=== PATIENT | female | born 1955 | race Caucasian/White ===

== ENCOUNTER 2017-07-14 18:10 | Emergency (ER) | payer OTHER ==
[~2017-07-14] VITALS: Ht 157.5 cm; Wt 63.5 kg
[2017-07-14] MEDS ORDERED: BENADRYL25 MG PO (20:24)
[2017-07-14] MEDS ORDERED: Pepcid40 MG PO (20:24)
[2017-07-14] MEDS ORDERED: Prednisone20 MG PO (20:24)
== END 2017-07-14 20:46 | disposition home or self-care (01) ==
LOC: ER 18:10
DX: L50.9 Urticaria, unspecified (principal); Z91.013 Allergy to seafood; Z88.8 Allergy status to other drugs, medicaments and biological substances; F17.200 Nicotine dependence, unspecified, uncomplicated
CPT/HCPCS: 96372; 99283; J2930; Q0163

== ENCOUNTER 2020-03-23 08:23 | Day surgery (SDC) | payer OTHER ==
[~2020-03-23] VITALS: Ht 157.5 cm; Wt 81.3 kg
[~2020-03-23 08:23] MED LIST: BENADRYL25 MG PO; Pepcid40 MG PO; Prednisone20 MG PO
--- NOTE | 2020-03-23 09:15 | NUR ---
03/23/20 0915 EWA VALENCIA PATIENT INTO PRE OP - REPORTS EATING COOKIE AND WATER AT 0800 THIS MORNING. OR NURSE NOTIFIED WHO CAME AND SPOKE WITH PATIENT. PATIENT NOTIFIED THAT ALTHOUGH PROCEDURE IS SCHEDULED LOCAL - RELAXING MEDICATION AND PAIN MEDICATION IS SOMETIMES GIVEN THROUGH THE IV WELL LOCAL. PATIENT NOTIFIED DUE TO EATING SHE WILL NOT BE ELLIGIBLE FOR THIS. SHE IS AWARE AND WILLING TO PROCEED. PT READY FOR OR. IV PRESENT, ENGAGED IN PRE OP TEACHING.
--- NOTE | 2020-03-23 09:58 | NUR ---
03/23/20 0958 Fannie Wren PT NOT NPO THIS MORNING, NOTIFIED.NO SEDATION PER MD, LOCAL ONLY.PT WAS AWARE AND OKAY WITH THIS PLAN TO PROCEED.PT BROUGHT BACK TO THE OR,POSTIONED,PREPPED,AND DRAPED, LOCAL ANESTHETIC GIVEN.PT APPEARS TO BE TOLERATING THE PROCEDURE WELL WITHOUT COMPLAINT.PT ENCOURAGED TO VOCALIZE ANY DISCOMFORT. WILL CONTINUE TO MONITOR.
--- NOTE | 2020-03-23 10:54 | NUR ---
03/23/20 1054 Samantha Newby V DRESSING ON L SIDE OF PT'S HEAD.
== END 2020-03-23 10:45 | disposition home or self-care (01) ==
LOC: ORSCSDS 08:23
PROVIDERS: Surgery
PROC: 0JB00ZX Excision of Scalp Subcutaneous Tissue and Fascia, Open Approach, Diagnostic (ICD-10-PCS; principal; 2020-03-23 09:30)
DX: L72.8 Other follicular cysts of the skin and subcutaneous tissue (principal); B19.20 Unspecified viral hepatitis C without hepatic coma; Z87.891 Personal history of nicotine dependence
CPT/HCPCS: 88304; J0690; J7120

== ENCOUNTER 2024-10-30 20:46 | Inpatient (IN) | payer OTHER ==
[~2024-10-30] VITALS: Ht 157.5 cm; Wt 95.5 kg
[2024-10-30 21:27] LABS: Hematocrit 40.8 % (33.0-51.0); Hemoglobin 14.6 g/dL (11.5-16.0); Mean Corpuscular HGB 31.1 pg (26.0-34.0); Mean Corpuscular HGB Conc 35.8 g/dL (31.5-36.5); Mean Corpuscular Volume 87 fL (80-100); NRBC ABSOLUTE 0.03 K/mm3 (0.00-0.02); NRBC Auto 0.2 /100 WBC (0.0-0.2); RDW Coefficient Variation 18.6 % (11.7-14.2); Red Blood Cell Count 4.69 M/mm3 (3.80-5.20); White Blood Cell Count 16.92 K/mm3 (4.00-11.30)
[2024-10-30 21:36] LABS: Albumin, Blood 2.3 g/dL (3.4-5.0); Albumin/Globulin Ratio 0.8 (0.8-1.8); Bilirubin, Total 7.1 mg/dL (0.1-1.0); Calcium, Blood 8.8 mg/dL (8.5-10.1); Creatinine, Blood 0.62 mg/dL (0.40-1.00); Globulin, Blood 2.8 g/dL (2.2-4.0); Potassium, Blood 3.8 mmol/L (3.5-5.5); Total Protein, Blood 5.1 g/dL (6.4-8.2)
[2024-10-30 21:45] LABS: Platelet Count 25 K/mm3 (150-400)
[2024-10-30 22:44] LABS: BASOPHILS ABSOLUTE MAN 0.16 K/mm3 (0.00-0.23); BASOPHILS PERCENT MAN 1 % (0-2); EOSINOPHILS ABSOLUTE MAN 9.13 K/mm3 (0.00-0.68); EOSINOPHILS PERCENT MAN 54 % (0-6); LYMPHOCYTES ABSOLUTE MAN 3.04 K/mm3 (0.84-5.20); LYMPHOCYTES PERCENT MAN 18 % (21-46); MONOCYTES PERCENT MAN 16 % (4-13); NEUTROPHILS ABSOLUTE MAN 1.86 K/mm3 (1.96-9.15); SEG NEUTROPHILS PERCENT MAN 11 % (41-73); TOTAL CELLS COUNTED 100
[2024-10-30] MEDS ORDERED: NS 1,000 ML IV SCH (23:25)
[2024-10-31 02:24] LABS: Source, Urine Clean Catch
[2024-10-31 02:27] LABS: Appearance, Urine Hazy (Clear); Blood, Urine 5+ (Neg); Glucose Qualitative, Urine Neg (Neg); Ketones, Urine 1+ (Neg); Leukocyte Esterase, Urine 3+ (Neg); Nitrite, Urine Pos (Neg); Protein, Urine 3+ (Neg); Specific Gravity, Urine 1.015 (1.003-1.022); Urobilinogen, Urine 2+ (Normal)
[2024-10-31 02:43] LABS: Bilirubin, Urine 2+ (Neg); Color, Urine Orange (P-Yellow)
[2024-10-31 02:46] LABS: Bacteria Few /hpf; Red Blood Cells, Urine 50-100 /hpf (0-2); Squamous Epithelial Cells Many /hpf (Few)
[2024-10-31 02:48] VITALS: BP 113/63
[2024-10-31] MEDS ORDERED: CefTRIAXone Sodium 1,000 MG in NS 100 ML IV SCH (03:06)
--- NOTE | 2024-10-31 04:08 | NUR ---
ADMIT NOTE HANDOFF GIVEN TO STUDENT NURSE BY STRAP FOLDING MACHINE OPERATOR. PT ARRIVED TO FLOOR VIA GURNEY. PT ORIENTED TO UNIT. CALL BUTTON WITHIN REACH. PERSONAL POSSESSIONS WITH PT.
[2024-10-31] MEDS ORDERED: NS 250 ML IV PRN (04:10)
[2024-10-31 05:15] LABS: Hematocrit 39.5 % (33.0-51.0); Hemoglobin 14.1 g/dL (11.5-16.0); Mean Corpuscular HGB 31.1 pg (26.0-34.0); Mean Corpuscular HGB Conc 35.7 g/dL (31.5-36.5); Mean Corpuscular Volume 87 fL (80-100); NRBC ABSOLUTE 0.02 K/mm3 (0.00-0.02); NRBC Auto 0.1 /100 WBC (0.0-0.2); RDW Coefficient Variation 18.8 % (11.7-14.2); RDW Standard Deviation 59.4 fL (35.1-46.3); Red Blood Cell Count 4.53 M/mm3 (3.80-5.20); White Blood Cell Count 17.66 K/mm3 (4.00-11.30)
[2024-10-31 05:22] LABS: Platelet Count 24 K/mm3 (150-400)
[2024-10-31 05:34] LABS: Albumin, Blood 2.2 g/dL (3.4-5.0); Albumin/Globulin Ratio 0.8 (0.8-1.8); Bilirubin, Total 6.7 mg/dL (0.1-1.0); Bun/Creatinine Ratio 20.1 (12.0-20.0); Calcium, Blood 8.5 mg/dL (8.5-10.1); Creatinine, Blood 0.55 mg/dL (0.40-1.00); Globulin, Blood 2.8 g/dL (2.2-4.0); Potassium, Blood 3.7 mmol/L (3.5-5.5)
--- NOTE | 2024-10-31 05:39 | NUR ---
SPOKE WITH RESIDENT INFORMED HER OF CRITICAL LOW PLATELET LAB. INFORMED HER OF SITES THAT ARE LIGHTLY BLEEDING ON THE PATIENTS BODY. I DID ASK ABOUT THE LOVENOX SCHEDULED FOR LATER THIS MORNING, AND SHE INFORMED ME TO HAVE IT HELD FOR TODAY.
--- NOTE | 2024-10-31 05:41 | NUR ---
SHIFT SUMMARY ADMIT 10/31/24 FOR PNEUMONIA. FULL CODE. HX METASTATIC MELANOMA TO LEFT AXILLARY LYMPH NODE. HX OVARIAN CA S/P B/L ISAC AND BSO. DENIES CHEST PAIN. INCREASING GENERAL WEAKNESS AND DYSPNEA SINCE LAST IMMUNOTHERAPY IN 09/2024. FOLLOWS WITH DR. CONCHITA CARRILLO. DIFFICULTY RISING FROM BATH LAST HS WITH HELP FROM LIFE PARTNER, LETI WHO SHE LIVES WITH. HYPOTENSIVE IN ED, IMPROVED WITH 1L NS. PLATELETS 24. SCANT ACTIVE BLEEDING FROM URETHRA D/T CONTRERAS START ATTEMPT IN ED, ALSO BLEED FROM [facility] IV, AND L SUBCONJUNCTIVA. PT DESCRIBING BAND-LIKE TIGHT DISCOMFORT AROUND TOP OF ABDOMEN RADIATING TO BACK. B/L HANDS NUMB >1 MONTH. DAILY DOSE OF IV ROCEPHIN VIA 20g IN LAC. 2ND IV IN [facility]. AT BASELINE AMBULATES WITH FURNITURE FOR ASSIST. BEDREST HERE TILL PT/OT EVAL IN AM. PENDING DIET ORDER, CURRENTLY NPO. RESIDENT ALSO TO ADD ON IV ABX FOR UTI, CURRENTLY PENDING.
[2024-10-31 05:57] VITALS: BP 117/57
[2024-10-31 06:15] LABS: BASOPHILS PERCENT MAN 0 % (0-2); EOSINOPHILS ABSOLUTE MAN 8.65 K/mm3 (0.00-0.68); EOSINOPHILS PERCENT MAN 49 % (0-6); LYMPHOCYTES ABSOLUTE MAN 4.41 K/mm3 (0.84-5.20); LYMPHOCYTES PERCENT MAN 25 % (21-46); MONOCYTES ABSOLUTE MAN 1.94 K/mm3 (0.16-1.47); MONOCYTES PERCENT MAN 11 % (4-13); NEUTROPHILS ABSOLUTE MAN 2.64 K/mm3 (1.96-9.15); SEG NEUTROPHILS PERCENT MAN 15 % (41-73); TOTAL CELLS COUNTED 100
[2024-10-31 08:21] VITALS: BP 112/69
[2024-10-31] MEDS ORDERED: Enoxaparin 40 MG/0.4 ML SYR SC SCH (09:00)
[2024-10-31] MEDS ORDERED: Azithromycin 500 MG in NS 250 ML IV SCH (09:30)
[2024-10-31] MEDS ORDERED: Calcium Carbonate 500 MG Tab Chew PO STA (11:48)
[2024-10-31] MEDS ORDERED: Calcium Carbonate 500 MG Tab Chew PO PRN (12:00)
[2024-10-31] MEDS ORDERED: NS 1,000 ML IV SCH (15:05)
[2024-10-31] MEDS ORDERED: Piperacillin/Tazobactam Sod 3.375 GM in NS 100 ML IV SCH (15:09)
[2024-10-31] MEDS ORDERED: Lidocaine 2% Viscous Soln 20 ML,Nystatin 100,000 Unit/ml Susp 20 ML,Mag Hydrox/Al Hydro... MT PRN (15:15)
[2024-10-31 15:24] VITALS: BP 150/87
[2024-10-31] MEDS ORDERED: Acetaminophen 325 MG TABLET PO PRN (15:50)
--- NOTE | 2024-10-31 17:44 | NUR ---
SHIFT SUMMARY: PT AOX4, COOPERATIVE W/ STAFF AND CARE. NOT ON TELE, 2L NC >90%. PT/OT WORKED WITH PT IN AM, PT WAS WEAK TO TRANSFER, IN AFTERNOON PT GOT UP W/ 2 PERSON ASSIST AND TOLERATED WELL. UTILIZED BEDSIDE COMMODE AND SITTING IN RECLINER. PT IS TOLERATING FOODS IN SMALL PORTIONS AT THIS TIME W/ FEEDS GOING UP TOLERATED. PT FILLED OUT [place] FOR RECORDS FROM CANCER DOCTOR IN [place] FOR CURRENT IMMUNOTHERAPIES, DR LOPEZ REQUESTED AND NOTIFIED. ADVISED PT TO UTILIZE CALL LIGHT D/T FALL RISK/SAFETY. SITTING IN CHAIR COMFORTABLY.
--- NOTE | 2024-10-31 18:05 | NUR ---
REVIEWED AND AGREE WITH ALL CUTLERY GRINDER DOCUMENTATION
[2024-10-31 19:28] VITALS: BP 143/92
[2024-10-31] MEDS ORDERED: Ipratropium/Albuterol SulF 2.5-0.5MG/3 ML Amp INH SCH (20:00)
[2024-10-31] MEDS ORDERED: Lactobacil 2-S.Thermo-Bifido 1 1 Cap PO SCH (21:00)
[2024-10-31] MEDS ORDERED: Docusate Sodium 100 MG Cap PO SCH (22:20)
[2024-11-01 05:42] LABS: BASOPHILS ABSOLUTE AUTO 0.23 K/mm3 (0.00-0.23); BASOPHILS PERCENT AUTO 1 % (0-2); EOSINOPHILS ABSOLUTE AUTO 5.58 K/mm3 (0.00-0.68); EOSINOPHILS PERCENT AUTO 32 % (0-6); Hematocrit 39.5 % (33.0-51.0); Hemoglobin 14.2 g/dL (11.5-16.0); IMMATURE GRAN ABSOLUTE AUTO 0.15 K/mm3 (0.00-0.10); IMMATURE GRAN PERCENT AUTO 1 % (0-1); LYMPHOCYTES ABSOLUTE AUTO 4.85 K/mm3 (0.84-5.20); LYMPHOCYTES PERCENT AUTO 27 % (21-46); MONOCYTES ABSOLUTE AUTO 3.23 K/mm3 (0.16-1.47); MONOCYTES PERCENT AUTO 18 % (4-13); Mean Corpuscular HGB Conc 35.9 g/dL (31.5-36.5); Mean Corpuscular Volume 89 fL (80-100); NEUTROPHILS ABSOLUTE AUTO 3.63 K/mm3 (1.96-9.15); NEUTROPHILS PERCENT AUTO 21 % (41-73); NRBC ABSOLUTE 0.02 K/mm3 (0.00-0.02); NRBC Auto 0.1 /100 WBC (0.0-0.2); RDW Standard Deviation 60.8 fL (35.1-46.3); Red Blood Cell Count 4.44 M/mm3 (3.80-5.20); White Blood Cell Count 17.67 K/mm3 (4.00-11.30)
[2024-11-01 05:56] LABS: Platelet Count 27 K/mm3 (150-400)
[2024-11-01 06:12] LABS: Albumin, Blood 2.3 g/dL (3.4-5.0); Albumin/Globulin Ratio 0.9 (0.8-1.8); Bilirubin, Total 7.6 mg/dL (0.1-1.0); Bun/Creatinine Ratio 20.3 (12.0-20.0); Calcium, Blood 8.4 mg/dL (8.5-10.1); Creatinine, Blood 0.59 mg/dL (0.40-1.00); Globulin, Blood 2.7 g/dL (2.2-4.0); Potassium, Blood 3.8 mmol/L (3.5-5.5)
--- NOTE | 2024-11-01 06:43 | NUR ---
Shift Summary Pt was restless t/o the night, constantly wiggling herself down the bed. She desatted down to 80 early in the shift although this reading may have been inaccurate d/t poor finger circulation. I put her on cont. O2 monitoring with an ear probe and increased her O2 to 3L/min to maintane SPO2>92%. She c/o upper abdominal pain, and she is tender to palpatation in the area. She would display loud wheezing on and off which would suddenly appear and then be gone 20 minutes later. She did recieve one breathing treatment from RT which she said helped. She is AOx3-4 with some confusion. She is 1 assist to the BSC with FWW and she will get off the BSC without calling if not monitored. Frequent boosts in bed to maintane posture and promote easier breathing, HoB elevated t/o the shift.
[2024-11-01 07:28] VITALS: BP 176/71
[2024-11-01 08:28] VITALS: BP 146/65
[2024-11-01] MEDS ORDERED: Polyethylene Glycol 3350 17 gm PO SCH (09:00)
--- NOTE | 2024-11-01 13:59 | NUR ---
SPOKE TO DR SORIANO, REORDERED MED RECORDS. STAT. CLOSED OVER WEEKEND. ALSO FOUND PHONE NUMBER FOR DR CARRILLO, . DISCUSSED WITH DR SORIANO, NOT NEEDED TO HAVE HIM CALLED AT THIS TIME. PT SLIGHTLY MORE WHEEZE THIS AFT. IN LOW LEFT LUNG. NO NEW ORDRES.
--- NOTE | 2024-11-01 15:08 | NUR ---
RESENT FOR MEDICAL NOTES PER DR SORIANO 1200
[2024-11-01 15:39] VITALS: BP 165/66
[2024-11-01] MEDS ORDERED: Furosemide 10 MG/ML 4ML Vial IV ONE (16:40)
[2024-11-01] MEDS ORDERED: Albuterol 2.5 MG/3 ML VIAL INH PRN (16:45)
[2024-11-01] MEDS ORDERED: Furosemide 10 MG/ML 4ML Vial IV SCH (17:00)
--- NOTE | 2024-11-01 17:16 | NUR ---
1630 PT INCREASED SOB, INCREASED WHEEZING, TURNED O2 UP TO 7L TO KEEP AT 88-90%. INCREASED BLE EDEMA. CALLED DR SORIANO. OKAYED LASIX [address] IV NOW. WILL PL[address] ORDERS. ALSO CHEST XRAY. D/C IVF. CALLED CORDELL OCAMPO TO DO BREATHING TX. PT WHEEZY WITH EXHALE
--- NOTE | 2024-11-01 17:19 | NUR ---
1720 PT MORE RELAXED. HAD PUREWICK PLACED IS UNSTEADY AT THIS TIME .TURNED O2 DOWN TO 5L. WHEEZY IS IMPROVED SOME. O2, 93%. WHEEZES ON EXHALE, MORE NOTICABLE FORCED EXPIRATORY WHEEZING. 1730 SATS BACK TO 95%, TURNED O2 DOWN TO 3L. MAINTAINING AT 93%. PT RESTING DID URINATE, APPROX 150ML AT THIS TIME.
--- NOTE | 2024-11-01 18:29 | NUR ---
PT PLEASANT TODAY. MORE SLEEPY AND LESS RESPONSIVE THIS AM THAN THIS AFTERNOON. MORE AWAKE THIS ELICEO. DID HAVE LOT OF RESTLESS LEG ISSUES THIS AM. AM TYLENOL DID NOT SEEM TO HELP. THIS AFTERNOON, DID HELP MORE. ALSO USED KPAD FOR HEAT ON LEG. DID BETTER. RELAXED MORE. DID HAVE SOB EXACERBATION THIS AFT. D/C IVF. LASIX GIVEN. BREATHING TREATMENT GIVEN. O2 NEEDS INCREASED TO 7L FROM 3. NOW BACK TO 3L. STILL BLE EDEMA. AND SOME IN ARMS ALSO. DID URINATE SOME 150 AFTER LASIX. BLADDER SCAN SHOWED ONLY 17 ML REMAINING. FAMILY AT BEDSIDE. NO OTHER CONCERNS NOTED. BED IN LOW POSITION, CALL LITE IN REACH, CALLS APPRP
[2024-11-01 19:10] VITALS: BP 127/63
[2024-11-01] MEDS ORDERED: TraMADol HCl 50 MG Tab PO PRN (19:55)
[2024-11-01] MEDS ORDERED: Ondansetron HCl 2 MG / ML 2ML Vial IV PRN (20:00)
[2024-11-01] MEDS ORDERED: Melatonin 5 MG Tablet PO SCH (21:00)
--- NOTE | 2024-11-01 22:39 | NUR ---
PT WITH O2 AT 3L/NC UPON START OF THIS SHIFT, PT BEGAN TO DESAT AT APPROXIMATELY 2100, PT O2 INCREASED TO 7L/HFNC, RT CALLED TO ASSESS, AND BEGAN ANOTHER NEB TX AND INCREASED O2 TO 11L/ HFNC. MD NOTIFIED AND ORDERS NOTED. PT ALSO WITH NC OFF AT ONE POINT AND O2 SAT ON RA WAS 68%. CURRENT O2 SAT 89-90%.
[2024-11-01 23:01] LABS: Base Excess Venous -4.3 mmol/L; PCO2 Venous 38.2 mmHg (38-42); pH Blood Venous 7.35 (7.34-7.37)
[2024-11-02] VITALS (12 sets, daily range): BP systolic 111–137; BP diastolic 55–98
[2024-11-02 00:15] LABS: Albumin, Blood 1.9 g/dL (3.4-5.0); Albumin/Globulin Ratio 0.6 (0.8-1.8); Bilirubin, Total 8.1 mg/dL (0.1-1.0); Bun/Creatinine Ratio 18.2 (12.0-20.0); Calcium, Blood 7.9 mg/dL (8.5-10.1); Creatinine, Blood 0.61 mg/dL (0.40-1.00); Globulin, Blood 3.2 g/dL (2.2-4.0); Potassium, Blood 4.1 mmol/L (3.5-5.5); Total Protein, Blood 5.1 g/dL (6.4-8.2)
--- NOTE | 2024-11-02 02:23 | NUR ---
PT VERY ANXIOUS, KEEPS TRYING TO TAKE CPAP OFF, WILL ALARM AND WHEN CHECKED SOMETHING WILL BE UNDONE. PT VERY ACTIVE IN BED, AND WANTS TO SIT UP OFTEN, BUT ENCOURAGED TO LIE STILL AND TRY TO SLEEP. PT WITH EAR PROBE ON AT THIS TIME AND CONTINUOUS OXCIMETER READING 98-99%, LABS DONE EARLIER, AND CONCERN IN R/T LOW GLUCOSE LEVELS, PT NOT EATING WELL. PT HAS FREQUENT EPISODES OF BLEEDING FROM MOUTH, AND NEEDLE STICKS TEND TO BLEED LONG AFTER, HAVE CHANGED PRESSURE DRESSINGS MULTIPLE TIMES THIS SHIFT. WILL CONTINUE TO MONITOR.
[2024-11-02 05:17] LABS: Base Excess Venous -3.7 mmol/L; Bicarbonate Venous 21.1 mmol/L (24.0-30.0); PCO2 Venous 41.2 mmHg (38-42); pH Blood Venous 7.34 (7.34-7.37)
[2024-11-02 05:32] LABS: BASOPHILS ABSOLUTE AUTO 0.25 K/mm3 (0.00-0.23); BASOPHILS PERCENT AUTO 1 % (0-2); EOSINOPHILS ABSOLUTE AUTO 6.85 K/mm3 (0.00-0.68); EOSINOPHILS PERCENT AUTO 39 % (0-6); Hematocrit 38.9 % (33.0-51.0); Hemoglobin 13.5 g/dL (11.5-16.0); IMMATURE GRAN ABSOLUTE AUTO 0.09 K/mm3 (0.00-0.10); IMMATURE GRAN PERCENT AUTO 1 % (0-1); LYMPHOCYTES ABSOLUTE AUTO 3.78 K/mm3 (0.84-5.20); LYMPHOCYTES PERCENT AUTO 22 % (21-46); MONOCYTES ABSOLUTE AUTO 2.89 K/mm3 (0.16-1.47); MONOCYTES PERCENT AUTO 17 % (4-13); Mean Corpuscular HGB 31.5 pg (26.0-34.0); Mean Corpuscular HGB Conc 34.7 g/dL (31.5-36.5); Mean Corpuscular Volume 91 fL (80-100); NEUTROPHILS ABSOLUTE AUTO 3.51 K/mm3 (1.96-9.15); NEUTROPHILS PERCENT AUTO 20 % (41-73); RDW Coefficient Variation 19.4 % (11.7-14.2); RDW Standard Deviation 64.9 fL (35.1-46.3); Red Blood Cell Count 4.29 M/mm3 (3.80-5.20); White Blood Cell Count 17.37 K/mm3 (4.00-11.30)
[2024-11-02 05:39] LABS: Platelet Count 27 K/mm3 (150-400)
[2024-11-02 05:58] LABS: Albumin, Blood 2.3 g/dL (3.4-5.0); Albumin/Globulin Ratio 0.8 (0.8-1.8); Bilirubin, Total 8.3 mg/dL (0.1-1.0); Bun/Creatinine Ratio 16.4 (12.0-20.0); Calcium, Blood 8.1 mg/dL (8.5-10.1); Creatinine, Blood 0.67 mg/dL (0.40-1.00); Globulin, Blood 2.8 g/dL (2.2-4.0); Potassium, Blood 3.7 mmol/L (3.5-5.5); Total Protein, Blood 5.1 g/dL (6.4-8.2)
--- NOTE | 2024-11-02 06:10 | NUR ---
PATIENT CRITICAL PLATELET OF 27, SAME YESTERDAY, BUT PT IS NOW ACTIVELY BLEEDING. T.O. FROM DR. ALFONSO TO ADD PT/INR. ORDER READ BACK AND ORDER ENTERED. PRIMARY NURSE AND LAB NOTIFIED.
--- NOTE | 2024-11-02 06:37 | NUR ---
pt noted to have blood on toilet paper this am when done voiding.
[2024-11-02 06:48] LABS: International Normalized Ratio 1.73; Prothrombin Time Results 18.3 Sec (9.7-11.5)
--- NOTE | 2024-11-02 08:04 | NUR ---
called family, s/o angela to advise moving the pt to pcu
--- NOTE | 2024-11-02 08:33 | NUR ---
reviewed pt with kina arrington. is presently on 12 l o2 and exp wheezes t/o with crackles bases. pt still alert/oriented. answers approp. also has been on cpap last nite 8/60%. replaced to pt at my arrival for report. pt pulling at cpap and lines. bleeding noted at iv sites, and around mouth , although some dried blood noted on tongue. called dr main. orders for new xray chest. also move to pcu. report called to liz rn, room 11. called pt s/o. advised is moving to pcu.
--- NOTE | 2024-11-02 10:00 | NUR ---
TRANSFER/AM NOTE: PATIENT TRANSFER TO PCU 11 AT 0820 AM. ALERT AND ORIENTED X3-4. OCCASIONAL CONFUSION AND NONSENSICAL STATEMENTS. FOLLOWING COMMANDS. OVERALL VERY WEAK. 2 PERSON ASSIST WITH STAND AND PIVOT. DENIES PAINS. MOVING ALL EXTREMITIES. RESTLESS LEGS. TELE SHOWING SR WITH HR 80-90'S. SBP 110-130'S. DENIES CHEST PAIN/PRESSURE/PALPITATIONS. ECHO DONE AT BEDSIDE. MINIMAL EDEMA TO BLE. RIGHT ARM SWELLING DUE TO IV/LAB DRAWS. MINIMAL EDEMA TO LEFT ARM. ON 12L HIGH FLOW NASAL CANNULA. CPAP AT BEDSIDE ON 8 AND 50%. WHEEZING HEARD THROUGHOUT WITH CRACKLES IN BILATERAL BASES. OCCASIONAL COUGH. BREATHING TREATMENTS PER RT. DR. LAFLEUR TO BEDSIDE, FAMILY PRESENT. IV STERIODS GIVEN. BOWEL TONES PRESENT. TOLERATING CLEAR LIQUID DIET. TAKING PILLS WHOLE. DENIES WANT TO ADVANCE DIET AT THIS TIME. OCCASIONAL INCONTINENCE. PUREWICK IN PLACE. URINE JN IN COLOR. ATTENDS IN PLACE. STOOL SOFTNERS ADMINISTERED THIS AM. SCATTERED BRUISING THROUGHOUT WITH ULCERS NOTED TO SOFT PALATE. INTERMIT BLEEDING FROM IV SITES WELL FROM MOUTH ULCERS. DR. SORIANO TO BEDSIDE UPON TRANSFER. PATIENT AND FAMILY UPDATED. CALL LIGHT IN REACH. DENIES NEEDS AT THIS TIME.
[2024-11-02] MEDS ORDERED: rOPINIRole HCl 0.25 MG Tab PO SCH (11:05)
[2024-11-02] MEDS ORDERED: Ipratropium/Albuterol SulF 2.5-0.5MG/3 ML Amp INH SCH (11:50)
[2024-11-02] MEDS ORDERED: MethylPREDNISolone Sod Succ 125 MG Vial IV SCH (12:00)
[2024-11-02] MEDS ORDERED: LORazepam 2 MG/ML 1ML Injection IV PRN (14:15)
[2024-11-02 14:40] LABS: Bicarbonate Venous 23.5 mmol/L (24.0-30.0); PCO2 Venous 39.1 mmHg (38-42)
--- NOTE | 2024-11-02 15:32 | NUR ---
THIS RN BACK FROM LUNCH AND PATIENT WORK OF BREATHING WORSENING. PATIENT PULLING AND TAKING OFF CPAP. DR. SORIANO CALLED TO UPDATE. STAT VBG ORDERS IN PLACE. IV ATIVAN ORDERS. DR. LAFLEUR CALLED AND AT BEDSIDE TO SEE PATIENT. CPAP REPLACED AT THIS TIME. HOLDING OFF ON IV ATIVAN AT THIS TIME. FAMILY PRESENT. VBG RESULTED.
--- NOTE | 2024-11-02 17:09 | NUR ---
MET WITH PATIENTS SISTERS, KJ RONDON AND CHARISSE. DISCUSSED CODE STATUS, THEY RELAYED THAT THROUGH DISCUSSION WITH KEILA S/O LETI, BELKIS WOULD NOT WANT RESUSCIATION. HER SON IS COMING DOWN FROM [place] AND WILL BE HERE AT 2100 TONIGHT. THEY WANT TO KEEP HER A FULL CODE UNTIL HER SON GETS HERE. THEY UNDERSTAND THAT IN THE EVENT THAT HER HEART STOPS SHE WILL RECIEVE CPR AND INTUBATION. THEY HAVE DISCUSSED HER DECLINE WITH HER SON AND HE IS EXPECTING TO HAVE A DIFFICULT CONVERSATION TOMORROW ABOUT DIRECTION OF CARE.
--- NOTE | 2024-11-02 18:35 | NUR ---
SHIFT SUMMARY: PATIENT HAS REMAINED ORIENTED TO SELF, FAMILY AND PLACE. INTERMITENT CONFUSION AND NEEDING REORIENTATION. SHE HAS INTERMIT RESTLESSNESS. DOES WELL WITH REDIRECTION AND REORIENTATION. CONSTANTLY PULLING AT MASK IF STAFF OR FAMILY ARE NOT AT BEDSIDE. SITTER IN PLACE FOR THIS EVENING. ON CPAP AT THIS TIME 8 AND 50%. SMALL BREAKS FOR ORAL CARES AND SIPS OF WATER. PATIENT DENIES FOOD BUT WILLING TO TAKE A FEW BITES OF APPLESAUCE. TELE SHOWING SR/ST WITH HR 80-100'S. CONTINUES TO DENY CHEST PAIN/PRESSURE/PALPITATIONS. CONTINUES TO HAVE INTERMIT BLEEDING FROM PREVIOUS IV SITES AND LAB DRAWS WELL MOUTH AND SMALL AMOUNT IN ATTENDS. PUREWICK IN PLACE. PATIENT VOIDED 850 DURING THIS RN'S SHIFT. IV ABX INFUSED. PALLIATIVE CARE VISIT. COUSIN AND SIGNIFICANT OTHER AT BEDSIDE AT THIS TIME. CALL LIGHT IN REACH. DENIES NEEDS.
[2024-11-03] VITALS (45 sets, daily range): BP systolic 72–153; BP diastolic 49–86
[2024-11-03 03:42] LABS: BASOPHILS ABSOLUTE AUTO 0.03 K/mm3 (0.00-0.23); BASOPHILS PERCENT AUTO 1 % (0-2); EOSINOPHILS ABSOLUTE AUTO 0.02 K/mm3 (0.00-0.68); EOSINOPHILS PERCENT AUTO 1 % (0-6); Hematocrit 35.6 % (33.0-51.0); Hemoglobin 12.6 g/dL (11.5-16.0); IMMATURE GRAN ABSOLUTE AUTO 0.03 K/mm3 (0.00-0.10); IMMATURE GRAN PERCENT AUTO 1 % (0-1); LYMPHOCYTES ABSOLUTE AUTO 0.85 K/mm3 (0.84-5.20); LYMPHOCYTES PERCENT AUTO 19 % (21-46); MONOCYTES ABSOLUTE AUTO 0.21 K/mm3 (0.16-1.47); MONOCYTES PERCENT AUTO 5 % (4-13); Mean Corpuscular HGB Conc 35.4 g/dL (31.5-36.5); Mean Corpuscular Volume 88 fL (80-100); NEUTROPHILS ABSOLUTE AUTO 3.24 K/mm3 (1.96-9.15); NEUTROPHILS PERCENT AUTO 74 % (41-73); RDW Coefficient Variation 18.6 % (11.7-14.2); RDW Standard Deviation 59.3 fL (35.1-46.3); Red Blood Cell Count 4.07 M/mm3 (3.80-5.20); White Blood Cell Count 4.38 K/mm3 (4.00-11.30)
[2024-11-03 03:57] LABS: Platelet Count 33 K/mm3 (150-400)
[2024-11-03 04:18] LABS: D-Dimer, Quantitative 7.19 mg/L FEU (0.00-0.52)
[2024-11-03 04:31] LABS: Albumin, Blood 2.3 g/dL (3.4-5.0); Albumin/Globulin Ratio 0.8 (0.8-1.8); Bilirubin, Total 8.9 mg/dL (0.1-1.0); Bun/Creatinine Ratio 28.5 (12.0-20.0); Calcium, Blood 8.6 mg/dL (8.5-10.1); Creatinine, Blood 0.77 mg/dL (0.40-1.00); Globulin, Blood 2.8 g/dL (2.2-4.0); Potassium, Blood 4.4 mmol/L (3.5-5.5); Total Protein, Blood 5.1 g/dL (6.4-8.2)
[2024-11-03 05:48] LABS: International Normalized Ratio 1.92; Prothrombin Time Results 20.1 Sec (9.7-11.5)
[2024-11-03 06:10] LABS: Adenovirus Not Detected (NOT DETECT); Coronavirus 229E Not Detected (NOT DETECT); Coronavirus HKU1 Not Detected (NOT DETECT); Coronavirus NL63 Not Detected (NOT DETECT); Coronavirus OC43 Not Detected (NOT DETECT); Human Metapneumovirus Not Detected (NOT DETECT); Human Rhinovirus/Enterovirus Not Detected (NOT DETECT); Influenza A/2009-H1 Not Detected (NOT DETECT); Influenza A/H1 Not Detected (NOT DETECT); Influenza A/H3 Not Detected (NOT DETECT); Influenza B Not Detected (NOT DETECT); Parainfluenza Virus 1 Not Detected (NOT DETECT); Parainfluenza Virus 2 Not Detected (NOT DETECT); Parainfluenza Virus 3 Not Detected (NOT DETECT); SARS-Cov-2 (COVID-19), BioFire Not Detected (NOT DETECT)
[2024-11-03 06:11] LABS: Bordetella pertussis Not Detected (NOT DETECT); Chlamydophila pneumoniae Not Detected (NOT DETECT); Mycoplasma pneumoniae Not Detected (NOT DETECT); Parainfluenza Virus 4 Not Detected (NOT DETECT); Respiratory Syncytial Virus Not Detected (NOT DETECT)
--- NOTE | 2024-11-03 07:25 | NUR ---
PT ORIENTED X4 AT START OF SHIFT, ON CPAP 8/50%. ABLE TO TOLERATE BREAKS OFF AND SWALLOW PILLS AT HS ASSESMENT. ALERT AND CONVERSING WITH COUSIN IN ROOM. SOME MILD HALLUCINATIONS/STRANGE STATEMENTS AT TIMES SUCH HANDING PILLS THAT WERENT IN HER HAND TO FAMILY MEMBERS. PER FAMILY SHE DRINKS 1-2 TEQUILA SHOTS A NIGHT AND THEY HAD SOME CONCERN ABOUT W/D. SITTER IN ROOM FOR SAFETY AND KEEPING MASK ON. AFTER HS MEDS CONTINUED TO BE RESTLESS AND PULLING AT BIPAP CONTINOUSLY. GAVE 0.5MG IV ATIVAN ORDERED PRN. TOLERATED WELL AND SLEPT PEACEFULLY AND KEPT MASK ON FOR A FEW HOURS. NOTIFIED PROVIDER OF REPORT OF ETOH USE. AT 0000 ASSESSMENT AWAKENED EASILY TO VOICE ORIENTED X4, UNABLE TO VOID WITH PUREWIC. BLADDER SCAN SHOWED 600ML. SCATH COMPLETED PER PROTOCOL WITH 800ML OUT. NOTED VAGINAL BLEEDING PRIOR TO THIS AND REMOVED PUREWIC TO PREVENT FURTHER TRAUMA. ATTENDS IN PLACE. ALSO NOTED BLEEDING OF GUMS AND T/O NEEDLE STICK AREAS IN ARMS. ORAL CARE COMPLETED. ALSO NOTED NO RVP PANEL AND REQUESTING THIS AND FIBRINOGEN/D DIMER DUE TO OOZING T/O. AT O400 ASSESSMENT NOTED INCREASED LETHARGY, STERNAL RUBBING TO AWAKEN. ORIENTED X1-2. LETHARGIC/DIFFICULTY OPENING EYES. GUM BLEEDING HAD WORSENED. UNCOMFORTABLE AT THIS TIME PUTTING CPAP BACK ON AND SPOKE WITH ANNA BUTTS MD, XIN Chester, LOCAL HAZMAT DRIVER TO BEDSIDE AND CHAIR CAR DRIVER. PER MD HE WILL BE BY TO SEE PATIENT AND WILL ORDER 1 UNIT PLT DUE TO BLEEDING. CONCERN FOR DIC. ALSO REQUESTING HEAD CT AT THIS TIME FOR ALTERED MENTATION. PROVIDER DECLINED UNTIL SEEING PT. 0530 - MD TO BEDSIDE, CT HEAD ORDERED. FAMILY AT BEDSIDE AND UPDATED. 0645 - TRANSPORTED PT TO CT
--- NOTE | 2024-11-03 07:40 | NUR ---
PT TO ICU 15 FROM PCU 11. INTIALLY NOT FOLLOWING COMMANDS OR MAKING PURPOSEFUL MOVEMENTS. WHEN TURNING PATIENT TO REMOVE BEDDING SHE WOKE UP, FOLLOWING COMMANDS, COOPERATIVE WITH CARE. PT ABLE TO VERBALIZE HER NAME AND DATE OF . WHEN ASKED IF SHE KNEW WHERE SHE WAS SHE STATED "A [facility] [employer]". PT ALSO REPORTED THAT SHE HEARD PEOPLE FIGHTING OUTSIDE OF HER ROOM AND TRIED TO GET OUT OF BED TO SEE WHO IT WAS. PT WAS INFORMED THAT SHE WAS IN THE HOSPITAL AND THAT HER SON WAS ON THE WAY. PT STATED "IF ANY OF YOU DO ANYTHING TO MY SON I WILL KILL YOU". PT BEGAN GRABBING AT HER IV'S, NASAL CANNULA, STILL ATTEMPING TO GET OUT OF BED AND RAISING FIST TOWARDS STAFF, TELLING US TO LEAVE HER AND HER SON ALONE. DR. KELLEY AT BEDSIDE, INFORMED TO GIVE 1MG ATIVAN. PT STILL PULLING AT LINES AND ATTEMPTING TO GET OUT OF BED, YELLING AT AND THREATENING STAFF. DR. KELLEY ORDERED AND ADDITIONAL DOSE OF ATIVAN WHILE PRECEDEX WAS VERIFIED AND STARTED. PRECEDEX INITIATED AT 0.2 MCG/KG/HR. RAAS -4 TO -3. DR. LAFLEUR TO BEDSIDE, SEE ADDITIONAL ORDERS.
[2024-11-03] MEDS ORDERED: dexmedeTOMIDine 100 ML IV SCH (07:55)
[2024-11-03] MEDS ORDERED: LORazepam 2 MG/ML 1ML Injection IV ONE (08:00)
[2024-11-03] MEDS ORDERED: NS 500 ML IV ONE (08:37)
--- NOTE | 2024-11-03 09:33 | NUR ---
TRANSFER TO ICU PT RECEIVED TO ICU 15 AT 0740. PT AROUSABLE ONLY TO PAINFUL STIMULI UPON ARRIVAL. DURING ASSESSMENT AND ICU ADMISSION, PT BECAME AGITATED, AGGRESSIVE, AND WAS GIVEN PRECEDEX PER DR. LAFLEUR AND ATIVAN [address]X DOSE PER DR. TRIPP VIA RAPID RESPONSE TREATMENT. DR. LAFLEUR AWARE OF ATIVAN ADMINISTERED. PT PLACED ON BIPAP 15 10/8 40%. VERBAL BLOOD TRANSFUSION CONSENT PERFORMED WITH FAMILY. FAMILY AT BEDSIDE. SON ARRIVED FROM [place]. DR. LAFLEUR AT BEDSIDE. 0835 DR. SORIANO AT BEDSIDE. 1 UNIT PLATELETS TRANSFUSED. 0946 SLAGGER AT BEDSIDE FOR PICC PLACEMENT.
[2024-11-03 10:43] LABS: Base Excess Venous -2.5 mmol/L; Bicarbonate Venous 22.5 mmol/L (24.0-30.0); PCO2 Venous 39.2 mmHg (38-42); pH Blood Venous 7.37 (7.34-7.37)
[2024-11-03 10:48] LABS: Phosphorus, Blood 3.7 mg/dL (2.5-4.9)
--- NOTE | 2024-11-03 11:44 | NUR ---
PHYSICIAN NOTIFICATION DR. LAFLEUR NOTIFIED OF SOFT BPS 80S/60S MAP >65. PROVIDER TO PLACE ASSOCIATED ORDERS FOR TKO LINE, CONTRERAS CATHETER FOR CRITICAL I/O'S, IVF FLUIDS, LEVOPHED FOR MAP >65. DR. LAFLEUR RETURNED TO BEDSIDE FOR EVALUATION AND DISCUSSION WITH PT'S SON, CATHLEEN, AND PT'S SIGNIFICANT OTHER, LETI. VERBALIZED UNDERSTANDING OF SITUATION AND PLAN OF CARE.
[2024-11-03] MEDS ORDERED: Folic Acid 1 MG in NS 50 ML IV SCH (12:00)
[2024-11-03] MEDS ORDERED: Thiamine HCl 100 MG in NS 50 ML IV SCH (12:00)
[2024-11-03] MEDS ORDERED: Lactated Ringer's 1,000 ML IV SCH (12:20)
[2024-11-03] MEDS ORDERED: NS 250 ML IV PRN (13:15)
[2024-11-03] MEDS ORDERED: NS 500 ML IV SCH (13:45)
[2024-11-03 14:04] LABS: Source, Urine Foley catheter
[2024-11-03 14:10] LABS: Appearance, Urine Clear (Clear); Blood, Urine 3+ (Neg); Color, Urine Amber (P-Yellow); Glucose Qualitative, Urine Neg (Neg); Ketones, Urine 1+ (Neg); Leukocyte Esterase, Urine Neg (Neg); Nitrite, Urine Neg (Neg); Protein, Urine 2+ (Neg); Specific Gravity, Urine 1.025 (1.003-1.022); Urobilinogen, Urine NORM (Normal)
[2024-11-03 14:21] LABS: Bilirubin, Urine 1+ (Neg)
[2024-11-03 14:22] LABS: Bacteria Many /hpf; Squamous Epithelial Cells Few /hpf (Few); Transitional Epithelial Cells Rare /hpf (0-Rare)
--- NOTE | 2024-11-03 15:49 | NUR ---
SHIFT SUMMARY RAPID RESPONSE FROM PCU. PT INCREASINGLY DISORIENTED TO UNAROUSABLE OVERNIGHT. PT RESPONSIVE TO PAINFUL STIMULI, PRECEDEX, LEVOPHED INFUSING PER MAR. BIPAP INTACT, SETTINGS CHARTED. PICC TO RUE, PIV TO LAC. CONTRERAS TO GRAVITY WITH CLEAR JN URINARY OUTPUT. UA COMPLETED. PT RECEIVED 1 UNIT PLATELETS AFTER ARRIVAL TO UNIT. LAST BM CHARTED WAS 10/31. CHART REFLECTS FAMILY CONCERN FOR ETOH WITHDRAWS, TODAY WOULD BE DAY 3 SINCE LAST DRINK. FAMILY UPDATED TO STATUS AND PLAN OF CARE BY DR. LAFLEUR AND DR. SORIANO.
[2024-11-04] VITALS (45 sets, daily range): BP systolic 72–124; BP diastolic 55–104
[2024-11-04 03:43] LABS: BASOPHILS ABSOLUTE AUTO 0.01 K/mm3 (0.00-0.23); BASOPHILS PERCENT AUTO 0 % (0-2); EOSINOPHILS PERCENT AUTO 0 % (0-6); Hematocrit 30.3 % (33.0-51.0); Hemoglobin 10.8 g/dL (11.5-16.0); IMMATURE GRAN ABSOLUTE AUTO 0.04 K/mm3 (0.00-0.10); IMMATURE GRAN PERCENT AUTO 1 % (0-1); LYMPHOCYTES ABSOLUTE AUTO 0.65 K/mm3 (0.84-5.20); LYMPHOCYTES PERCENT AUTO 9 % (21-46); MONOCYTES ABSOLUTE AUTO 0.56 K/mm3 (0.16-1.47); MONOCYTES PERCENT AUTO 8 % (4-13); Mean Corpuscular HGB 31.5 pg (26.0-34.0); Mean Corpuscular HGB Conc 35.6 g/dL (31.5-36.5); Mean Corpuscular Volume 88 fL (80-100); Mean Platelet Volume 10.9 fL (9.1-12.4); NEUTROPHILS ABSOLUTE AUTO 6.24 K/mm3 (1.96-9.15); NEUTROPHILS PERCENT AUTO 83 % (41-73); Platelet Count 87 K/mm3 (150-400); RDW Coefficient Variation 18.6 % (11.7-14.2); RDW Standard Deviation 60.1 fL (35.1-46.3); Red Blood Cell Count 3.43 M/mm3 (3.80-5.20)
[2024-11-04 03:57] LABS: International Normalized Ratio 2.1; Prothrombin Time Results 21.9 Sec (9.7-11.5)
[2024-11-04 04:06] LABS: Albumin, Blood 2.1 g/dL (3.4-5.0); Albumin/Globulin Ratio 0.8 (0.8-1.8); Bun/Creatinine Ratio 42.4 (12.0-20.0); Creatinine, Blood 0.99 mg/dL (0.40-1.00); Globulin, Blood 2.7 g/dL (2.2-4.0); Magnesium, Blood 2.3 mg/dL (1.6-2.4); Phosphorus, Blood 3.3 mg/dL (2.5-4.9); Potassium, Blood 4.3 mmol/L (3.5-5.5); Total Protein, Blood 4.8 g/dL (6.4-8.2)
--- NOTE | 2024-11-04 05:47 | NUR ---
SHIFT SUMMARY PT SLEPT THROUGH THE NIGHT WITH PRECEDEX AT 0.2 MCG/KG/H. RESPONDS TO PAINFUL STIMULI. REMAINED ON BIPAP ALL NIGHT- 03/18/40%, SATS > 94%. HR 60-70'S, BP HAS BEEN SOFT BUT MAPS REMAINED > 65. LEVO ON SB SINCE 439. CONTRERAS DRAINING TO GRAVITY W/ 500ML OUT THIS SHIFT. CXR DONE THIS AM. SCDS IN PLACE. PT HAD UNEVENTFUL SHIFT.
[2024-11-04] MEDS ORDERED: YERVOY50 MG/101 IV (14:08)
[2024-11-04] MEDS ORDERED: OPDIVO40 MG/4 ML IV (14:16)
[2024-11-04] MEDS ORDERED: Thiamine HCl 500 MG in NS 100 ML IV SCH (16:00)
--- NOTE | 2024-11-04 17:17 | NUR ---
SHIFT SUMMARY PT LETHARGIC BUT ORIENTED TO SELF, FAMILY, PLACE THROUGH MOST OF SHIFT. REQUIRES REORIENTATION TO DATE/TIME/SITUATION. AFEBRILE. ABLE TO FOLLOW COMMANDS WITH WEAKNESS. NSR. BP SOFT WITH MAP >65 WITHOUT PRESSORS. NO PRECEDEX ADMINISTERED TODAY. WORKED WITH ST/PT/OT. ADVANCED TO MINCED/MOIST DIET. DENTAL HYGIENIST EVALUATED. PT UP TO CHAIR FOR SOME TIME TODAY WITH GAIT BELT/WALKER/2X ASSIST. AROUND 1530 PT BEGAN EXHIBITING S/S ETOH WD WITH INCREASED CONFUSION, SOME AGITATION WITH CORDS/LINES, AND REQUIRING CONTINUOUS REORIENTATION. PT ASSISTED BACK TO BED AT 1700 AND 1MG ATIVAN GIVEN. SOFT MUSIC WITH NATURE SOUNDS PLAYING. PICC TO RUE. PIV TO LAC. SCDS ON. 2-4LNC. CHG BATH COMPLETED. NO BM. 600 UOP.
[2024-11-05] VITALS (46 sets, daily range): BP systolic 79–140; BP diastolic 44–93
--- NOTE | 2024-11-05 05:33 | NUR ---
SHIFT SUMMARY PT HAS BEEN RESTLESS THROUGHOUT NIGHT. ALTHOUGH ABLE TO ANSWER A&O QUESTIONS APPROPRIATELY, PT HAS BEEN CONSISTENTLY TRYING TO UNPLUG SELF FROM VITALS MONITORING AND IS GENERALLY UNCOOPERATIVE WITH THIS NURSES DIRECTION. PT WAS ABLE TO EAT FOOD AND DRINK WATER AT BEGINNING OF SHIFT BUT WAS UNABLE TO PASS A SWALLOW SCREEN APROXIMATELY ONE HOUR AFTER INITIALLY EATING ALTHOUGH STILL PASSING A&O QUESTIONS. PT WAS TOLD SHE WOULD NOT BE ABLE TO RECIEVE WATER WHILE ON BIPAP MACHINE WELL WHEN SHE TOOK HERSELF OFF OF MACHINE, DESPITE ASKING FOR WATER. THIS NURSE ATTEMPTED TO HAVE PT SWALLOW WATER AROUND 0400 AFTER WHICH PT IMMEDIATELY STARTED COUGHING. PT HAS BEEN INFORMED THAT SHE WOULD NOT BE ABLE TO GET WATER AT THIS TIME UNTIL A SPEECH EVAL OR ANOTHER SWALLOW SCREEN HAS BEEN PASSED. PT SHAKES HEAD WHEN BEING TOLD THIS AND CONTINUES TO ASK FOR WATER. PT OFFERED SWABS TO WET MOUTH. PT HAS CONTINUED TO ROLL IN BED AND PULL OFF VITALS MONITORING EQUIPMENT, WHICH IS PROMPTLY PUT BACK ON. WILL CONTINUE TO MONITOR UNTIL REPORT PASSED TO DAY SHIFT TEAM.
[2024-11-05 08:31] LABS: BASOPHILS ABSOLUTE AUTO 0.01 K/mm3 (0.00-0.23); BASOPHILS PERCENT AUTO 0 % (0-2); EOSINOPHILS ABSOLUTE AUTO 0.01 K/mm3 (0.00-0.68); EOSINOPHILS PERCENT AUTO 0 % (0-6); Hematocrit 26.4 % (33.0-51.0); Hemoglobin 9.2 g/dL (11.5-16.0); IMMATURE GRAN ABSOLUTE AUTO 0.18 K/mm3 (0.00-0.10); IMMATURE GRAN PERCENT AUTO 2 % (0-1); LYMPHOCYTES ABSOLUTE AUTO 0.39 K/mm3 (0.84-5.20); LYMPHOCYTES PERCENT AUTO 5 % (21-46); MONOCYTES PERCENT AUTO 11 % (4-13); Mean Corpuscular HGB 31.1 pg (26.0-34.0); Mean Corpuscular HGB Conc 34.8 g/dL (31.5-36.5); Mean Corpuscular Volume 89 fL (80-100); Mean Platelet Volume 10.5 fL (9.1-12.4); NEUTROPHILS ABSOLUTE AUTO 6.83 K/mm3 (1.96-9.15); NEUTROPHILS PERCENT AUTO 82 % (41-73); NRBC ABSOLUTE 0.05 K/mm3 (0.00-0.02); NRBC Auto 0.6 /100 WBC (0.0-0.2); Platelet Count 63 K/mm3 (150-400); RDW Coefficient Variation 19.2 % (11.7-14.2); RDW Standard Deviation 62.9 fL (35.1-46.3); Red Blood Cell Count 2.96 M/mm3 (3.80-5.20); White Blood Cell Count 8.32 K/mm3 (4.00-11.30)
[2024-11-05 08:49] LABS: Albumin, Blood 1.9 g/dL (3.4-5.0); Albumin/Globulin Ratio 0.8 (0.8-1.8); Bilirubin, Total 7.3 mg/dL (0.1-1.0); Calcium, Blood 7.8 mg/dL (8.5-10.1); Creatinine, Blood 0.68 mg/dL (0.40-1.00); Globulin, Blood 2.5 g/dL (2.2-4.0); Potassium, Blood 3.8 mmol/L (3.5-5.5); Total Protein, Blood 4.4 g/dL (6.4-8.2)
[2024-11-05 08:59] LABS: BAND PERCENT MAN 1 % (0-8); BASOPHILS PERCENT MAN 0 % (0-2); EOSINOPHILS PERCENT MAN 0 % (0-6); LYMPHOCYTES ABSOLUTE MAN 0.24 K/mm3 (0.84-5.20); LYMPHOCYTES PERCENT MAN 3 % (21-46); MONOCYTES ABSOLUTE MAN 0.41 K/mm3 (0.16-1.47); MONOCYTES PERCENT MAN 5 % (4-13); NEUTROPHILS ABSOLUTE MAN 7.65 K/mm3 (1.96-9.15); SEG NEUTROPHILS PERCENT MAN 91 % (41-73); TOTAL CELLS COUNTED 100
[2024-11-05] MEDS ORDERED: Diazepam 5 MG / ML 2ML SYR IV PRN (16:30)
--- NOTE | 2024-11-05 19:15 | NUR ---
SHIFT SUMMARY NEURO: PT INTERMITTENTLY ALERT AND DROWSY. AT TIMES SHE IS ORIENTED TO PERSON. PLACE AND SITUATION AND OTHERTIMES SHE IS ONLY ORIENTED TO SELF. PT DOES NOT ALWAYS FOLLOW COMMANDS. PT IS HAVING VISUAL AND AUDIOLOGICAL HALLUCINATIONS. CIWA 8-18 TODAY. PRN ATIVAN USED X 1 EFFECTIVE, CHANGE TO VALIUM DUE TO NATIONAL SHORTAGE OF ATIVAN THIS AFTERNOON. PT STILL FIDGETING, PLESANT BUT AGITATED. ATTEMPTING TO EXIT BED AND TUGGING AND PULLING LINES OFF. CARDIAC: SR, SBP 90-130S. HR 70-80S. DENIED ANY CHEST PAIN. PULM: AUDIBILE EXPIRATORY WHEEZE TO UPPER/MID LOBES WITH BIBASILAR CRACKLES. +COUGH. PT ON NC 2LPM AT START OF SHIFT, O2 NEEDS INCREASED TO 5LPM TO MAINTAING O2 SATS >92% PT HAVING INCREASED WOB, VISIBLE ABDOMINAL MUSCLE USE, RR 25-30 AND STARTING TO GRUNT. PT TOLERATED BIPAP AFTER PRN ATIVAN FOR 5-6 HR WITH FREQUENT INTERUPPTIONS/BREAKS DUE TO CONFUSION. GI: HYPOACTIVE BOWEL TONES, NPO TODAY DUE TO MENTATION/BREATHING. : CONTRERAS DRAINING STRAW YELLOW URINE, IMPRESSIVE OUTPUT TODAY PHOTOS TAKEN OF BRUISING TO RUE AND BLE. PICC LINE DSG CHANGE AND CHG COMPLETED.
--- NOTE | 2024-11-05 19:31 | NUR ---
Assessment/Assumed Care Patient awake and restless. Attemtping to remove bipap, gown and picking at lines. Nursing staff able to redirect patient. Patient alert and oriented x4. Follows commands, but impulsive. Sclera yellow in color. JILL. Remains on bipap at 30%. Upper lung sounds clear, wheezes in lower lungs. Abdominal and accessory muscle use while breathing. Sinus joy and normotensive. Pulses palpable throughout. Feliz catheter care and oral care completed. Maximum assist when repositoning patient. Nursing answered all patient questions. Patient NPO, oral medications held. Medications given per mar. All questions from patient answered. Call light within reach and side rails up. Patient resting comfortably in bed.
[2024-11-05] MEDS ORDERED: RifAXIMin 550 MG Tablet PO SCH (21:00)
[2024-11-05] MEDS ORDERED: MethylPREDNISolone Sod Succ 125 MG Vial IV SCH (21:00)
[2024-11-05] MEDS ORDERED: dexmedeTOMIDine 100 ML IV SCH (21:30)
--- NOTE | 2024-11-05 21:30 | NUR ---
CALL TO MD CALL TO DR CAZARES REGARDING PT REMOVING BIPAP AND PULLING AT LINES. TRYING TO REDIRECT FREQUENTLY. CIWA 10 MED PER EMAR WITH VALUIM. TRANSFER PT BACK TO ICU STATUS FOR PRECEDEX GTT FOR BIPAP COMPLIANTS
[2024-11-06] VITALS (32 sets, daily range): BP systolic 97–121; BP diastolic 58–83
[2024-11-06 03:49] LABS: BASOPHILS ABSOLUTE AUTO 0.01 K/mm3 (0.00-0.23); BASOPHILS PERCENT AUTO 0 % (0-2); EOSINOPHILS PERCENT AUTO 0 % (0-6); Hematocrit 28.9 % (33.0-51.0); IMMATURE GRAN ABSOLUTE AUTO 0.11 K/mm3 (0.00-0.10); IMMATURE GRAN PERCENT AUTO 1 % (0-1); LYMPHOCYTES ABSOLUTE AUTO 0.41 K/mm3 (0.84-5.20); LYMPHOCYTES PERCENT AUTO 5 % (21-46); MONOCYTES ABSOLUTE AUTO 0.75 K/mm3 (0.16-1.47); MONOCYTES PERCENT AUTO 9 % (4-13); Mean Corpuscular HGB 31.2 pg (26.0-34.0); Mean Corpuscular HGB Conc 34.6 g/dL (31.5-36.5); Mean Corpuscular Volume 90 fL (80-100); Mean Platelet Volume 10.6 fL (9.1-12.4); NEUTROPHILS ABSOLUTE AUTO 6.74 K/mm3 (1.96-9.15); NEUTROPHILS PERCENT AUTO 84 % (41-73); NRBC ABSOLUTE 0.12 K/mm3 (0.00-0.02); NRBC Auto 1.5 /100 WBC (0.0-0.2); Platelet Count 57 K/mm3 (150-400); RDW Coefficient Variation 19.3 % (11.7-14.2); RDW Standard Deviation 62.6 fL (35.1-46.3); Red Blood Cell Count 3.21 M/mm3 (3.80-5.20); White Blood Cell Count 8.02 K/mm3 (4.00-11.30)
[2024-11-06 04:09] LABS: International Normalized Ratio 2.16; Prothrombin Time Results 22.4 Sec (9.7-11.5)
[2024-11-06 04:16] LABS: Albumin, Blood 2.2 g/dL (3.4-5.0); Albumin/Globulin Ratio 0.8 (0.8-1.8); Bilirubin, Total 9.4 mg/dL (0.1-1.0); Bun/Creatinine Ratio 47.2 (12.0-20.0); Calcium, Blood 8.3 mg/dL (8.5-10.1); Creatinine, Blood 0.64 mg/dL (0.40-1.00); Globulin, Blood 2.7 g/dL (2.2-4.0); Magnesium, Blood 2.5 mg/dL (1.6-2.4); Phosphorus, Blood 2.6 mg/dL (2.5-4.9); Potassium, Blood 3.8 mmol/L (3.5-5.5); Total Protein, Blood 4.9 g/dL (6.4-8.2)
--- NOTE | 2024-11-06 06:25 | NUR ---
SHIFT SUMMARY Patient remains agitated and restless despite PRN CIWA medications given. Not tolerating bipap and attempting to remove. MD notified and patient upgraded to ICU and precedex gtt started at 0.4. Patients RASS score remained at -2 once precedex gtt started. Drip titrated off per patients MAR. Will awaken to stimulation and moves all 4 extremities spontaneously. Remains on bipap at 30%. Lung sounds clear over diminished. Oral care completed every 4 hours. Normotensive, however heart rate dropped down to low 40's unsustained. Heart rate remains irregular. Pulses palpable throughout. Capillary refill less than [address] with adequate urine output. No changes to skin as previously documented. Q2 turns.
[2024-11-06] MEDS ORDERED: ChlordiazePOXIDE 25 MG Cap PO PRN (10:40)
--- NOTE | 2024-11-06 14:39 | NUR ---
ROUNDED ON PATIENT, SHE WAS UP TO THE CHAIR AT THIS TIME. ALERT AND PLESANT AT THIS TIME. PATIENT SISTER AND SON WERE AT BEDSIDE. DISCUSSED CODE STATUS. SHE WOULD LIKE TO REMAIN A FULL CODE AT THIS TIME. ASSISTED PATIENT TO REPOSITION AND PROVIDED A NECK PILLOW.
--- NOTE | 2024-11-06 18:55 | NUR ---
SHIFT SUMMARY NEURO: PT INTERMITTENTLY ALERT AND DROWSY. SHE IS ORIENTED TO PERSON. PLACE AND SITUATION PT DOES NOT ALWAYS FOLLOW COMMANDS. PT IS HAVING VISUAL AND AUDIOLOGICAL HALLUCINATIONS INTERMITTENTLY. CIWA 8-18 TODAY. PRN LIBRIUM X 1 EFFECTIVE PT STILL FIDGETING, PLESANT BUT AGITATED. ATTEMPTING TO EXIT BED AND TUGGING AND PULLING LINES OFF. CARDIAC: SR, SBP 90-130S. HR 70-80S. DENIED ANY CHEST PAIN. PULM: COARSE IN UPPER LOBES THIS AM NOW DIM/CLEAR. ON BIPAP AT START OF SHIFT. PT STARTED REMOVING. PLACED ON 5LPM VIA NC. O2 REDUCED TO 2LPM 1600. INCREASED TO 5LPM WITH ACTIVITY/WHILE EATING. +COUGH. PT HAVING INCREASED WOB, VISIBLE ABDOMINAL MUSCLE USE AT TIMES, MUCH REDUCED FROM YESTERDAY. GI: HYPOACTIVE BOWEL TONES, DIET ADVANCED TODAY. DID WELL WITH LUNCH AND DINNER, ATAXIA ASSISTED WITH EATING/DRINKING BUT ENCOURAGED TO PERFORM. : CONTRERAS DRAINING STRAW YELLOW URINE. FAMILY INTO TODAY TO VISIT. PROVIDED UPDATES ON CONDITION. PT UP TO THE CHAIR FOR ALL MEALS TODAY.
[2024-11-06] MEDS ORDERED: MethylPREDNISolone Sod Succ 40 MG VIAL IV SCH (21:00)
--- NOTE | 2024-11-06 22:59 | NUR ---
ASSUMED CARE OF PATIENT AT 1900. BEDSIDE REPORT GIVEN. ALL QUESTIONS ANSWERED BY OFFGOING RN. PATIENT AWAKE AND ALERT IN BED. RESTING COMFORTABLY. INTERMITTENTLY RESTLESS, PICKING AT GOWN AND NASAL CANNULA. PATIENT STATING THAT SHE SEES THINGS ON HER HANDS AND THAT SOMEONE IS IN THE CORNER OF THE ROOM. CIWA SCORING DONE TO REFLECT SYMPTOMS. NSR ON TELEMETRY. NORMOTENSIVE. PULSES PALPABLE THROUGHOUT. OXYGEN SUPPORT WITH 5L NC. COURSE LUNG SOUNDS. RESTLESSNESS AND ANXIETY INCREASED. PRECEDEX GTT STARTED PER EMAR. PATIENT RESTING COMFORTABLY IN BED. CALL LIGHT WITHIN REACH, BED ALARM ON, SIDE RAILS UP. CARE PLAN CONTINUED ORDERED.
[2024-11-07] VITALS (18 sets, daily range): BP systolic 93–143; BP diastolic 56–105
[2024-11-07 03:58] LABS: BASOPHILS ABSOLUTE AUTO 0.01 K/mm3 (0.00-0.23); BASOPHILS PERCENT AUTO 0 % (0-2); EOSINOPHILS PERCENT AUTO 0 % (0-6); Hematocrit 26.8 % (33.0-51.0); Hemoglobin 9.5 g/dL (11.5-16.0); IMMATURE GRAN ABSOLUTE AUTO 0.12 K/mm3 (0.00-0.10); IMMATURE GRAN PERCENT AUTO 2 % (0-1); LYMPHOCYTES ABSOLUTE AUTO 0.42 K/mm3 (0.84-5.20); LYMPHOCYTES PERCENT AUTO 6 % (21-46); MONOCYTES ABSOLUTE AUTO 0.89 K/mm3 (0.16-1.47); MONOCYTES PERCENT AUTO 12 % (4-13); Mean Corpuscular HGB 32.2 pg (26.0-34.0); Mean Corpuscular HGB Conc 35.4 g/dL (31.5-36.5); Mean Corpuscular Volume 91 fL (80-100); Mean Platelet Volume 11.8 fL (9.1-12.4); NEUTROPHILS ABSOLUTE AUTO 6.14 K/mm3 (1.96-9.15); NEUTROPHILS PERCENT AUTO 81 % (41-73); NRBC ABSOLUTE 0.16 K/mm3 (0.00-0.02); NRBC Auto 2.1 /100 WBC (0.0-0.2); RDW Coefficient Variation 19.7 % (11.7-14.2); RDW Standard Deviation 63.6 fL (35.1-46.3); Red Blood Cell Count 2.95 M/mm3 (3.80-5.20); White Blood Cell Count 7.58 K/mm3 (4.00-11.30)
[2024-11-07 04:05] LABS: Platelet Count 48 K/mm3 (150-400)
[2024-11-07 04:09] LABS: International Normalized Ratio 2.21; Prothrombin Time Results 22.9 Sec (9.7-11.5)
[2024-11-07 04:13] LABS: Albumin, Blood 2.1 g/dL (3.4-5.0); Albumin/Globulin Ratio 0.8 (0.8-1.8); Bilirubin, Total 9.2 mg/dL (0.1-1.0); Bun/Creatinine Ratio 46.5 (12.0-20.0); Calcium, Blood 8.5 mg/dL (8.5-10.1); Creatinine, Blood 0.6 mg/dL (0.40-1.00); Globulin, Blood 2.6 g/dL (2.2-4.0); Magnesium, Blood 2.4 mg/dL (1.6-2.4); Phosphorus, Blood 2.6 mg/dL (2.5-4.9); Potassium, Blood 4.3 mmol/L (3.5-5.5); Total Protein, Blood 4.7 g/dL (6.4-8.2)
--- NOTE | 2024-11-07 04:18 | NUR ---
CRITICAL LAB MD PAVEL AWARE NO ORDERS AT THIS TIME PT IS NOT ACTIVELY SHOWING S,SX OF BLEEDING
--- NOTE | 2024-11-07 09:11 | NUR ---
AM NOTE... ASSUMED CARE OF PATIENT AT APPROX 0645. PATIENT A&OX4, SLEEPY BUT WAKES TO VOICE. PRECEDEX INFUSING AT 0.1 MCG/KG/HR. HR NORMAL SINUS IN THE 70'S. BP STABLE WITH MAPS >65. PATIENT ON 4.5L O2 WITH SATS >92%. L/S WHEEZE TO BILATERAL UPPER LOBES, DIM TO THE RIGHT BASE, COARSE CRACKLES TO THE LEFT LOBES. CONTRERAS PATENT AND DRAINING YELLOW URINE TO GRAVITY. VISITOR AT BEDSIDE UPDATED ON PLAN OF CARE.
--- NOTE | 2024-11-07 17:45 | NUR ---
SHIFT SUMMARY... NO ACUTE NEGATIVE CHANGES NOTED THIS SHIFT. PT HAS BEEN ON RA WITH O2 SATS>90% SINCE APROX 1100. PT WAS UP IN THE CHAIR FOR APROX 4 HOURS THIS SHIFT AND TOLERATED THIS WELL. PT'S FAMILY HAS BEEN AT THE BEDSIDE MOST OF THIS SHIFT. SHE WORKED WITH PT/OT AND IS ANXIOUS TO "GO HOME." PT HAS NOT HAD A BM THIS SHIFT, BOWEL CARE WAS GIVEN THIS AM. PT'S LAST BM CHARTED WAS 11/01. PT'S CONTRERAS IS PATENT AND DRAINING CLEAR, DARK YELLOW/JN URINE TO GRAVITY. PT CONTINUES TO BE SINUS IN THE 80'S-90'S, BP STABLE WITH MAPS>65.
[2024-11-08] VITALS (15 sets, daily range): BP systolic 123–160; BP diastolic 66–104
[2024-11-08] MEDS ORDERED: QUEtiapine Fumarate 25 MG Tab PO SCH (03:00)
[2024-11-08] MEDS ORDERED: Melatonin 5 MG Tablet PO SCH (03:00)
[2024-11-08 03:27] LABS: BASOPHILS ABSOLUTE AUTO 0.03 K/mm3 (0.00-0.23); BASOPHILS PERCENT AUTO 0 % (0-2); EOSINOPHILS ABSOLUTE AUTO 0.01 K/mm3 (0.00-0.68); EOSINOPHILS PERCENT AUTO 0 % (0-6); Hematocrit 29.5 % (33.0-51.0); Hemoglobin 10.5 g/dL (11.5-16.0); IMMATURE GRAN ABSOLUTE AUTO 0.49 K/mm3 (0.00-0.10); IMMATURE GRAN PERCENT AUTO 5 % (0-1); LYMPHOCYTES ABSOLUTE AUTO 0.45 K/mm3 (0.84-5.20); LYMPHOCYTES PERCENT AUTO 4 % (21-46); MONOCYTES ABSOLUTE AUTO 1.21 K/mm3 (0.16-1.47); MONOCYTES PERCENT AUTO 12 % (4-13); Mean Corpuscular HGB Conc 35.6 g/dL (31.5-36.5); Mean Corpuscular Volume 90 fL (80-100); Mean Platelet Volume 11.7 fL (9.1-12.4); NEUTROPHILS ABSOLUTE AUTO 8.17 K/mm3 (1.96-9.15); NEUTROPHILS PERCENT AUTO 79 % (41-73); NRBC ABSOLUTE 0.29 K/mm3 (0.00-0.02); NRBC Auto 2.8 /100 WBC (0.0-0.2); RDW Coefficient Variation 19.7 % (11.7-14.2); RDW Standard Deviation 61.9 fL (35.1-46.3); Red Blood Cell Count 3.28 M/mm3 (3.80-5.20); White Blood Cell Count 10.36 K/mm3 (4.00-11.30)
[2024-11-08 03:36] LABS: Platelet Count 50 K/mm3 (150-400)
[2024-11-08 03:41] LABS: International Normalized Ratio 2.22
[2024-11-08 03:47] LABS: Albumin, Blood 2.3 g/dL (3.4-5.0); Albumin/Globulin Ratio 0.9 (0.8-1.8); Bilirubin, Total 10.7 mg/dL (0.1-1.0); Bun/Creatinine Ratio 50.8 (12.0-20.0); Calcium, Blood 8.5 mg/dL (8.5-10.1); Creatinine, Blood 0.59 mg/dL (0.40-1.00); Globulin, Blood 2.6 g/dL (2.2-4.0); Magnesium, Blood 2.2 mg/dL (1.6-2.4); Phosphorus, Blood 2.2 mg/dL (2.5-4.9); Potassium, Blood 3.8 mmol/L (3.5-5.5); Total Protein, Blood 4.9 g/dL (6.4-8.2)
--- NOTE | 2024-11-08 05:57 | NUR ---
SHIFT SUMMERY PT HAS BEEN VERY CONFUSED OVERNIGHT WELL IMPULSIVE. SHE HAS REQUIRED FREQUENT REDIRECTION AND REORIENTATION. SHE HAS CURSED AT STAFF WELL. SHE HAS NOT REQUIRED BIPAP BUT SOFT WRIST RESTRAINTS WERE NEEDED FOR PT SAFETY. SHE WAS GIVEN PRN MEDICATION PER HER EMAR AND NONE OF THEM WERE EFFECTIVE. SHE HAS NOT SLEPT THIS SHIFT. CONTRERAS CATH INTACT PATENT AND DRAINING TO GRAVITY. 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 BP WNL. OXYGEN SAT >92% W/NC 2-4L. NO BM THIS SHIFT.
--- NOTE | 2024-11-08 07:35 | NUR ---
AM NOTE... ASSUMED CARE OF PT AT 0700, PT IS ALERT BUT VERY CONFUSED, YELLING OUT AND ATTEMPTING TO CLIMB OUT OF BED. PT IS HAVING VISUAL HALLUCINATIONS SEEING HER SISTER WALKING BY THE ROOM. WHEN ASKED WHERE SHE IS AT SHE SAYS "[facility] [place] THE PT IS ROLLING AROUND IN THE BED YELLING OUT "HELP ME" WHEN ASKED WHAT SHE NEEDS SHE JUST SAYS "HELP ME" PT IS IN SR IN THE 90'S, BP IS STABLE. PT HAS GENERALIZED 1+ EDEMA. SCDs ARE IN PLACE. PT WAS ON 5L NC AT THE START OF THIS SHIFT. THIS HAS BEEN TITRATED DOWN TO 2L NC WITH O2 SATS>90%. L/S CLEAR T/O COARSE IN THE BASES AND DIM ON THE RIGHT LOWER LOBE. PT HAS A CONTRERAS THAT IS DRAINING TO GRAVITY.
[2024-11-08] MEDS ORDERED: OLANZapine ODT 5 MG Tab MM PRN (09:00)
[2024-11-08] MEDS ORDERED: Furosemide 10 MG / ML 2ML Vial IV SCH (09:45)
--- NOTE | 2024-11-08 17:12 | NUR ---
SHIFT SUMMARY.... THE PT WAS GIVEN 1 DOSE OF ODT ZYPREXA AND HER MENTATION IMPROVED GREATLY T/O THIS SHIFT. PT IS NO LONGER HAVING HALLUCINATIONS AND IS COOPERATIVE WITH CARE, PT STILL HAS MOMENTS OF CONFUSION BUT IS FOLLOWING COMMANDS AND NO LONGER ATTEMPTING TO CLIMB OUT OF BED OR PULL HER LINES/CORDS OUT/OFF. PT HAS NOT HAD A BM THIS SHIFT PROVIDER IS AWARE THAT IT HAS BEEN 6 DAYS SINCE HER LAST BM, PLANS FOR INCREASED BOWEL CARE IF NO BM BY TOMORROW MORNING. PT HAS BEEN ON RA MOST OF THIS AFTERNOON BUT DOES DESAT DOWN TO THE MID 80'S WHEN DOZING. PT HAS NOT SLEPT AT ALL THIS SHIFT. PT'S CONTRERAS IS PATENT AND DRAINING CLEAR DARK YELLOW/JN URINE TO GRAVITY. SHE CONTINUES TO BE IN SR INT HE 80'S-90'S BP IS STABLE WITH SBPs 120'S-140'S.
--- NOTE | 2024-11-08 20:21 | NUR ---
UPDATE ASSUMED CARE OF PT AT 1900, PT AWAKE AND ALERT ORIENTED TO PERSON, PLACE/ SITUATION AND YEAR, EASILY REORIENTED TO TIME/DATE, PT CALM AND COOPERATIVE, FOLLOWS COMMANDS, ABLE TO MAKE NEEDS KNOWN, SPEECH IS SLOW, SR 80s, BP STABLE, AFEBRILE, CONTRERAS PATENT AND DRAINING JN URINE TO GRAVITY, NOTE RUE +2 EDEMATOUS WITH BRUISING, LUE +1/+2 EDEMATOUS, GENERALIZED +1 EDEMA NOTED, SCDs ON BLE, RIGHT ARM TL PICC PATENT AND ALL PORTS CAPPED, PT ATE 1 POPSICLE PER REQUEST,HS MEDS GIVEN PO 1 AT TIME, PT SWALLOWED WITHOUT DIFFCULTY, REPOSITIONED FOR COMFORT , SIDE RAILS UP X2, BED ALARM ON ,CALL LIGHT IN REACH
[2024-11-09] VITALS (8 sets, daily range): BP systolic 140–168; BP diastolic 76–92
--- NOTE | 2024-11-09 00:16 | NUR ---
UPDATE PT BECOMING MORE CONFUSED AND RESTLESS NIGHT PROGRESSING, HALLUCINATING ABOUT NEEDING TO GET THE ROLLING CHAIR IN THE CORNER FOR THE BAKERY, ATTEMPTING TO GET OUT OF BED AND PERIODICALLY YELLING OUT "FUCK", REPOSITIONED NUMEROUS TIMES, LIGHTS DIMMED, TV TURNED OFF PER PT REQUEST OF "TURN THE MUSIC BOX OFF", MEDICATED WITH VALIUM 5 MG AT 2230 AND ZYPERXA 5 MG AT 2345. SIDE RAILS UP X2, BED ALARM ON, VSS, AFEBRILE
[2024-11-09 04:12] LABS: BASOPHILS ABSOLUTE AUTO 0.06 K/mm3 (0.00-0.23); BASOPHILS PERCENT AUTO 1 % (0-2); EOSINOPHILS ABSOLUTE AUTO 0.01 K/mm3 (0.00-0.68); EOSINOPHILS PERCENT AUTO 0 % (0-6); Hematocrit 29.8 % (33.0-51.0); Hemoglobin 10.6 g/dL (11.5-16.0); IMMATURE GRAN ABSOLUTE AUTO 0.78 K/mm3 (0.00-0.10); IMMATURE GRAN PERCENT AUTO 7 % (0-1); LYMPHOCYTES PERCENT AUTO 5 % (21-46); MONOCYTES PERCENT AUTO 15 % (4-13); Mean Corpuscular HGB 32.2 pg (26.0-34.0); Mean Corpuscular HGB Conc 35.6 g/dL (31.5-36.5); Mean Corpuscular Volume 91 fL (80-100); Mean Platelet Volume 11.6 fL (9.1-12.4); NEUTROPHILS ABSOLUTE AUTO 8.37 K/mm3 (1.96-9.15); NEUTROPHILS PERCENT AUTO 73 % (41-73); NRBC ABSOLUTE 0.47 K/mm3 (0.00-0.02); NRBC Auto 4.1 /100 WBC (0.0-0.2); Platelet Count 51 K/mm3 (150-400); RDW Coefficient Variation 20.4 % (11.7-14.2); RDW Standard Deviation 65.1 fL (35.1-46.3); Red Blood Cell Count 3.29 M/mm3 (3.80-5.20); White Blood Cell Count 11.52 K/mm3 (4.00-11.30)
[2024-11-09 04:31] LABS: Albumin, Blood 2.2 g/dL (3.4-5.0); Albumin/Globulin Ratio 0.9 (0.8-1.8); Bun/Creatinine Ratio 38.6 (12.0-20.0); Calcium, Blood 8.6 mg/dL (8.5-10.1); Creatinine, Blood 0.6 mg/dL (0.40-1.00); Globulin, Blood 2.5 g/dL (2.2-4.0); Potassium, Blood 3.6 mmol/L (3.5-5.5); Total Protein, Blood 4.7 g/dL (6.4-8.2)
[2024-11-09] MEDS ORDERED: Potassium Chloride 20 MEQ TabCR PO ONE (05:10)
[2024-11-09] MEDS ORDERED: Dextrose 50% 50 ML Vial ONE (05:20)
--- NOTE | 2024-11-09 06:20 | NUR ---
SHIFT SUMMARY PT REMAINS CONFUSED AND RESTLESS ALL SHIFT, DID NOT SLEEP, CLOSES EYES FOR 5-10 MIN AND THEN OPENS EYES AND BEGINS ATTEMPTING TO ROLLOVER, PULLING ON RAILS AND ATTEMPTING TO PUT LEGS OVER SIDE RAILS, FREQUENT REPOSITIONING AND REDIRECTION NEEDED, PT DID REMAIN PLEASANT, MEDICATED WITH ZYPREXA X1 AND VALIUM IVP X2 FOR RESTLESSNESS AND AGITATION, VSS, AFEBRILE, CONTRERAS PATENT AND DRAINING TO GRAVITY
--- NOTE | 2024-11-09 06:43 | NUR ---
UPDATE 0510 CALLED WITH AM LAB RESULTS WITH NEW ORDERS RECEIVED FOR 40 MEQ KCL PO FOR POTASSIUM OF 3.6
[2024-11-09] MEDS ORDERED: MethylPREDNISolone Sod Succ 40 MG VIAL IV SCH (08:00)
[2024-11-09] MEDS ORDERED: Lactulose 20 GM/30 ML UDC PO ONE (08:35)
[2024-11-09] MEDS ORDERED: Furosemide 10 MG / ML 2ML Vial IV SCH (09:00)
--- NOTE | 2024-11-09 09:22 | NUR ---
am note this rn assumed care at 0700. vital sign stable. sinus rhythm on heart monitor in the 80s. patient is alert and oriented to person, self, and thought she was in the hospital in [facility] and this rn oriented to being in [facility] in [facility]. patient got the year correct but was stated the month was September. this rn oriented to correct time and date. patient denies chest pain/pressure, pain or shortness of breath. patient has scattered bruising throughout her body. abd is active and moderately distended as patient has not had a bowel movement in 5 days according to the chart. see shift assessment for further detials. Md Maciel in to see patient and discussed plan of care. Patient switched to pcu status with tele and had a one time dose of lactulous. The goal is for the patient to have a bowel movement and begin to start strengthening.
--- NOTE | 2024-11-09 10:26 | NUR ---
ICE CREAM patient son brought ice cream in and it is in the fridge.
--- NOTE | 2024-11-09 12:28 | NUR ---
transfer of care this rn gave report to parisa rn whom is assuming care of the patient in pcu room 2. this rn called patient son anastasiya and updated on room change, and anastasiya is going to call angela significant other to updated him on room change. patient left with all belongings and in no distress. patient is drowsy this afternoon compared to this morning. patient had a full bed bath with chg wipes and linen change. see previous notes.
--- NOTE | 2024-11-09 12:59 | NUR ---
TRANSFER NOTE. PT ARRIVED INTO PCU AT ABOUT ~1235. VERY SOMNOLENT, ABLE TO BE ROUSED VIA VERBAL STIMULI. AOX2. VITALS STABLE OUTSIDE OF MILDLY ELEVATED BP. RUNNING SINUS ON TELE. MAINTAINING ADEQUATE SATURATION ON 2 L O2 VIA NC. DENIES PAIN, REPORTS BEING COMFORTABLE. FOLIC ACID RUNNING VIA PICC @ THIS TIME. SEE SHIFT ASSESSMENT FOR FURTHER DETAILS. PT RESTING COMFORTABLY AT THIS TIME. BED LOCKED IN LOWEST POSITION. EDUCATED PIT STEWARD LIGHT USE AND IT WAS LEFT WITHIN REACH. CONTINUING TO MONITOR.
--- NOTE | 2024-11-09 16:47 | NUR ---
TRANSFER OF CARE TRANSFER OF CARE OCCURRED AT 1630, REPORT RECEIVED FROM KRISTEN PERSAUD. THIS NURSE INFORMED THE PT OF THIS CHANGE.
--- NOTE | 2024-11-09 17:54 | NUR ---
SHIFT SUMMARY PT AOX2, INTERMITTANT CONFUSION. IMPULSIVE AT TIMES. NO ACUTE COMPLAINTS SINCE TRANSFER OF CARE. PT'S BF AT THE BS. PT REPOSITIONED NEEDED. CONTRERAS PATENT AND DRAINING. PICC IS SALINE LOCKED. PT IS A 2-3P TRANSFER, SHE HAS DIFFICULTY FOLLOWING DIRECTIONS. NO EVENTS PER TELE. CALL LIGHT WITHIN REACH, BED LOCKED AND IN THE LOWEST POSITION. WILL REPORT TO ONCOMING NURSE.
[2024-11-09 21:29] LABS: Base Excess Venous 6.3 mmol/L; PCO2 Venous 33.9 mmHg (38-42)
[2024-11-09 21:31] LABS: pH Blood Venous 7.54 (7.34-7.37)
[2024-11-10] VITALS (7 sets, daily range): BP systolic 133–163; BP diastolic 81–99
[2024-11-10 03:22] LABS: Hematocrit 32.5 % (33.0-51.0); Hemoglobin 11.2 g/dL (11.5-16.0); Mean Corpuscular HGB 31.9 pg (26.0-34.0); Mean Corpuscular HGB Conc 34.5 g/dL (31.5-36.5); Mean Corpuscular Volume 93 fL (80-100); Mean Platelet Volume 10.6 fL (9.1-12.4); NRBC ABSOLUTE 0.54 K/mm3 (0.00-0.02); NRBC Auto 5.4 /100 WBC (0.0-0.2); RDW Coefficient Variation 21.3 % (11.7-14.2); RDW Standard Deviation 68.5 fL (35.1-46.3); Red Blood Cell Count 3.51 M/mm3 (3.80-5.20); White Blood Cell Count 10.03 K/mm3 (4.00-11.30)
[2024-11-10 03:24] LABS: Base Excess Venous 5.9 mmol/L; Bicarbonate Venous 29.6 mmol/L (24.0-30.0); PCO2 Venous 35.3 mmHg (38-42); pH Blood Venous 7.52 (7.34-7.37)
[2024-11-10 03:28] LABS: Platelet Count 45 K/mm3 (150-400)
[2024-11-10 03:55] LABS: Albumin, Blood 2.2 g/dL (3.4-5.0); Albumin/Globulin Ratio 0.9 (0.8-1.8); Bilirubin, Total 13.2 mg/dL (0.1-1.0); Bun/Creatinine Ratio 40.4 (12.0-20.0); Calcium, Blood 8.5 mg/dL (8.5-10.1); Creatinine, Blood 0.54 mg/dL (0.40-1.00); Globulin, Blood 2.4 g/dL (2.2-4.0); Potassium, Blood 3.8 mmol/L (3.5-5.5); Total Protein, Blood 4.6 g/dL (6.4-8.2)
--- NOTE | 2024-11-10 04:17 | NUR ---
SHIFT SUMMARY 68 YR F ADMITTED ON 10/31/24. FULL CODE. PT HAS SLEPT FOR THE ENTIRETY OF THIS SHIFT AND WAS DIFFICULT TO AROUSE. EVENING MEDS WERE HELD FOR THIS REASON. AT 2125 PT HAD A CRITIAL PH @ 7.54. NO INTERVENTIONS. PH VALUE WAS BACK WNL THIS A.M. @ 0310 PT HAD A CRITICAL PLATELET LEVEL OF 45. CURRENTLY WAITING FOR A CALL BACK FROM HOSPITALIST. WILL DOCUMENT IN CRITICAL LAB VALUE INTERVENTION. CONTRERAS IS PATENT AND DRAINING TO GRAVITY. PICC LINE IS PATENT AND DRAWS.
[2024-11-10] MEDS ORDERED: Polyethylene Glycol 3350 17 gm PO SCH (09:00)
[2024-11-10] MEDS ORDERED: Thiamine HCl 100 MG Tab PO SCH (09:00)
[2024-11-10] MEDS ORDERED: Lactulose 20 GM/30 ML UDC PO SCH (09:00)
--- NOTE | 2024-11-10 18:33 | NUR ---
SHIFT SUMMARY: PT A&O X2. VERY LETHARGIC/SOMNOLENT THIS SHIFT. PT ABLE TO WAKE FOR MORNING MEDS INCLUDING LACTULOSE. PT ABLE TO WAKE ENOUGH TO SIT IN RECLINER AND TRANSFER TO BSC TO HAVE LARGE BM. BM REPORTED TO DR. CAZARES. CONTRERAS IN PLACE DRAINING JN URINE TO GRAVITY. SCLERAS AND SKIN VERY JAUNDICED. DR. CAZARES AWARE OF PLATELET LEVEL STATING TO TRANSFUSE LOWER THAN 10. PALLIATIVE INVOLVED IN PT CARE. FAMILY AT BEDSIDE T/O SHIFT. CALL LIGHT IN REACH. BED IN LOWEST POSITION.
[2024-11-11 03:27] VITALS: BP 149/83
[2024-11-11 03:46] LABS: Hematocrit 33.9 % (33.0-51.0); Hemoglobin 11.6 g/dL (11.5-16.0); Mean Corpuscular HGB 31.9 pg (26.0-34.0); Mean Corpuscular HGB Conc 34.2 g/dL (31.5-36.5); Mean Corpuscular Volume 93 fL (80-100); NRBC ABSOLUTE 0.31 K/mm3 (0.00-0.02); NRBC Auto 2.8 /100 WBC (0.0-0.2); RDW Coefficient Variation 21.2 % (11.7-14.2); RDW Standard Deviation 69.9 fL (35.1-46.3); Red Blood Cell Count 3.64 M/mm3 (3.80-5.20); White Blood Cell Count 10.91 K/mm3 (4.00-11.30)
[2024-11-11 03:51] LABS: Platelet Count 44 K/mm3 (150-400)
[2024-11-11 04:04] LABS: Calcium, Blood 8.3 mg/dL (8.5-10.1); Creatinine, Blood 0.55 mg/dL (0.40-1.00); Potassium, Blood 3.6 mmol/L (3.5-5.5)
--- NOTE | 2024-11-11 04:28 | NUR ---
SHIFT SUMMARY THIS RN ASSUMED CARE OF PATIENT AT 1900. PT AGGITATED AT BEGINNING OF SHIFT. CALLING OUT TO "GO HOME" AND FOR "LETI". THIS RN ATTEMPTED TO EXPLAIN PLAN OF CARE TO PATIENT. PT CRYING AND REPORTING FRUSTRATION. PT ATTEMPTING OOB UNSAFELY SETTING BED ALARM OFF SEVERAL TIMES. NOT USING CALL LIGHT. PT WAS GIVEN PRN PO ZYPREXA FOR AGGITATION. PT WITH X3 MEDIUM BM'S THIS SHIFT AFTER LACTULOSE GIVEN FOR NOC DOSE, USING BEDPAN. ON 2L VIA NC. OTHERWISE VSS. REPOSITIONING Q2HRS. CONTRERAS CATHETER PATENT AND DRAINING TO GRAVITY. BED ALARM REMAINS ON. BED IN LOWEST POSITION AND CALL LIGHT WITHIN REACH. THIS RN WILL REPORT TO ONCOMING DAYSDCFT RN.
[2024-11-11 08:10] VITALS: BP 135/91
[2024-11-11 12:17] VITALS: BP 146/97
[2024-11-11 15:33] VITALS: BP 157/90
--- NOTE | 2024-11-11 17:43 | NUR ---
End of shift note. Pt was deep asleep this morning, very difficult to rouse until 10am. After that, Pt has mostly been awake all shift. She has been OOB multiple times to the commode and recliner. Fair PO intake this shift. Increased to a regular texture diet. All doses of lactalose given. Some nausea complaints this evening, medicated per AUG. Supplemental O2 was weaned, Pt has been tolerating room air this shift. Feliz removed at 1400, Pt does not have the urge to void yet. Perwick is in place, Pt was educated on the importance of needing to void. Pt is able to make needs known. Bed alarm is active due to impulsivity. Significant other is currently at bedside.
--- NOTE | 2024-11-11 17:49 | NUR ---
PALLIATIVE CARE NOTE: ATTEMPTED TO MEET WITH PT YESTERDAY AND TODAY. PT TOO SMNOLENT FOR MEANINGFUL CONVERSATION.
[2024-11-11 19:22] VITALS: BP 142/98
[2024-11-12] VITALS (7 sets, daily range): BP systolic 110–148; BP diastolic 87–113
--- NOTE | 2024-11-12 04:25 | NUR ---
SHIFT SUMMARY THIS RN ASSUMED CARE OF PATIENT AT 1900. PT A&o x3-4. MANY BM'S DURING THIS SHIFT. TOWARDS END OF SHIFT BM'S BEGAN TO BE MORE LIQUID. PT'S RECTUM EXCORIATED. PT EDUCATED REGARDING LACTULOSE AND PLAN OF CARE. PT EDUCATED ABOUT RECTAL TUBE BUT DECLINED RECTAL TUBE INSERTION AT THIS TIME. PT NEEDING 2-4L VIA NC TO MAINTAIN SPO2. OTHERWISE VSS. BLADDER SCAN AT BEGINNING OF SHIFT SHOWING 187MLS. NO URINE OUTPUT NOTED BY 2AM. BLADDER SCAN SHOWING ONLY 288MLS MAX BUT PATIENT IS NOTED TO HAVE ANASARCA T/O SO THERE WAS SOME QUESTION TO WHETHER THE BLADDER SCAN WAS ACCURATE. THIS RN PERFORMED STRAIGHT CATH. ONLY 200MLS OF JN COLORED URINE DRAINED. MD JOLLEY NOTIFIED OF POOR URINE OUTPUT SINCE PREVIOUS CONTRERAS WAS REMOVED AT 1400 DURING THE PREVIOUS SHIFT. NO NEW ORDERS AT THIS TIME. PT CONTINUES TO NOT USE CALL LIGHT APPROPRIATELY BUT IS ABLE TO EXPLAIN HOW TO USE IT AND JOKES ABOUT NOT USING CALL LIGHT. BED ALARM REMAINS ON. BED IN LOWEST POSITION AND CALL LIGHT WITHIN REACH. THIS RN WILL REPORT TO ISAAC MELTON RN.
--- NOTE | 2024-11-12 07:24 | NUR ---
ASSUMPTION NOTE: THIS RN TO ASSUME CARE OF PATIENT. PATIENT IS SLEEPING IN BED,HARD TO AROUSE BUT EVEN & UNLABORED RESPIRATIONS. VITAL SIGNS STABLE, PT HAS CALL LIGHT WITHIN REACH & BED IN LOWEST POSITION.
--- NOTE | 2024-11-12 07:52 | NUR ---
MD CALLED: THIS RN CALLED MD REGARDING PATIENT NOT HAVING LABS DONE THIS AM AND LOOSE STOOLS THROUGHOUT THE NIGHT ALSO PATIENT BEING HARD TO AROUSE THIS MORNING. MD AWARE NO NEW ORDERS AT THIS TIME. STATED IF PATIENT IS NOT AWAKE BY 9-10AM THIS MORNING WE CAN RECHECK LABS THEN.
[2024-11-12] MEDS ORDERED: Lactulose 20 GM/30 ML UDC PO SCH (09:00)
[2024-11-12 15:38] LABS: Albumin, Blood 2.1 g/dL (3.4-5.0); Albumin/Globulin Ratio 0.9 (0.8-1.8); Bilirubin, Total 12.7 mg/dL (0.1-1.0); Bun/Creatinine Ratio 46.4 (12.0-20.0); Calcium, Blood 8.9 mg/dL (8.5-10.1); Creatinine, Blood 0.56 mg/dL (0.40-1.00); Globulin, Blood 2.4 g/dL (2.2-4.0); Potassium, Blood 3.7 mmol/L (3.5-5.5); Total Protein, Blood 4.5 g/dL (6.4-8.2)
--- NOTE | 2024-11-12 16:43 | NUR ---
SHIFT SUMMARY: PATIENT IS ALERT AND ORIENTED X3-4 AT TIMES,COMES AND GOES AND ISN'T ABLE TO GIVE ALL DETAILS ABOUT WHAT BROUGHT HER HERE. IS ON TELE SHOWING SINUS RYTHM WITH RATE 70-80'S. SATTING >92% ON 2-4LITERS VIA NASAL CANNULA. PATIENT DOES NOT USE CALL LIGHT APPROPRIATELY AND CALLS OUT WHEN NEEDING SOMETHING. PATIENT CONTINUED LACTULOSE TODAY & BOWEL MOVEMENTS DID SLOW DOWN TODAY,THEY CONTINUE TO BE LOOSE AND LIQUID. PATIENT WAS ENCOURAGED TO TRY A RECTAL TUBE THE SKIN AROUND HER RECTUM IS VERY RED AND DOES BLEED WHEN WIPING. PATIENT DECLINED. FAMILY CAME TO BEDSIDE THROUGHOUT THE SHIFT. PATIENT DID NOT WANT TO WORK WITH PHYSICAL THERAPY TODAY. IS VERY WEAK. WAS ABLE TO USE THE BEDISDE COMMODE AND STOOD FOR A BIT BUT DID NOT WANT TO SIT IN THE CHAIR. PATIENT ORAL INTAKE WAS VERY POOR TODAY AND WAS ENCOURAGED AND OFFERED ENSURE'S BUT DECLINED. DID NOT HAVE MUCH URINE OUTPUT THORUGHOUT SHIFT EITHER. PATIENT HAS CALL LIGHT WITHIN REACH, BED IN LOWEST POSITION,BED ALARM ON AND STATING NOTHING ELSE IS NEEDED AT THIS TIME.
[2024-11-13] VITALS (7 sets, daily range): BP systolic 104–146; BP diastolic 62–83
[2024-11-13 03:09] LABS: Base Excess Venous 5.4 mmol/L; Bicarbonate Venous 28.3 mmol/L (24.0-30.0); PCO2 Venous 38.4 mmHg (38-42); pH Blood Venous 7.48 (7.34-7.37)
[2024-11-13 03:25] LABS: Hematocrit 38.1 % (33.0-51.0); Hemoglobin 13.3 g/dL (11.5-16.0); Mean Corpuscular HGB 32.4 pg (26.0-34.0); Mean Corpuscular HGB Conc 34.9 g/dL (31.5-36.5); Mean Corpuscular Volume 93 fL (80-100); NRBC ABSOLUTE 0.06 K/mm3 (0.00-0.02); NRBC Auto 0.5 /100 WBC (0.0-0.2); RDW Coefficient Variation 21.5 % (11.7-14.2); RDW Standard Deviation 70.5 fL (35.1-46.3); Red Blood Cell Count 4.11 M/mm3 (3.80-5.20); White Blood Cell Count 12.78 K/mm3 (4.00-11.30)
[2024-11-13 03:45] LABS: Platelet Count 23 K/mm3 (150-400)
[2024-11-13 03:54] LABS: International Normalized Ratio 2.25; Prothrombin Time Results 23.3 Sec (9.7-11.5)
[2024-11-13 04:00] LABS: Albumin, Blood 2.1 g/dL (3.4-5.0); Bilirubin, Total 12.5 mg/dL (0.1-1.0); Bun/Creatinine Ratio 44.9 (12.0-20.0); Calcium, Blood 8.3 mg/dL (8.5-10.1); Creatinine, Blood 0.62 mg/dL (0.40-1.00); Globulin, Blood 2.2 g/dL (2.2-4.0); Potassium, Blood 3.5 mmol/L (3.5-5.5); Total Protein, Blood 4.3 g/dL (6.4-8.2)
--- NOTE | 2024-11-13 04:45 | NUR ---
SHIFT SUMMARY THIS RN ASSUMED CARE OF PATIENT AT 1900. PT LETHARGIC AND ORIENTED X3-4. PT EDUCATED ON NEEDING TO SIT UP TO DRINK WATER. ASSISTANCE GIVEN FOR DRINKS. PT WAS ON 4L VIA NC FOR THE MAJORITY OF THE SHIFT. AT APPROXIMATELY 0245 PT BEGAN DESATTING MORE AND WAS ON 6L VIA NC WITH SPO2 86-88%. SWITCHED TO HIGH FLOW NC TO 8-10L TO MAINTAIN SPO2. NO TACHYPNEA NOTED. PT DENIED SOB AT REST. MD JOLLEY NOTIFIED OF INCREASED OXYGEN DEMANDS AND CONTINUED LETHARGY. ORDER FOR VBG AND CHEST XRAY. NO NEW ORDERS AT THIS TIME. PT HAS BEEN TITRATED DOWN TO 6L VIA NC AT THIS TIME. MD JOLLEY NOTIFIED OF NO VOID DURING THIS SHIFT AND BLADDER SCAN NOTING 285MLS. NO NEW ORDERS. PT WITH X2 BM S DURING THIS SHIFT. OTHER VSS. REPOSITIONING Q2HRS. BED IN LOWEST POSITION AND CALL LIGHT WITHIN REACH. THIS RN WILL REPORT TO ONCOMING DAYSWAFT RN.
[2024-11-13] MEDS ORDERED: Dextrose 50% 50 ML Syringe ONE (04:56)
[2024-11-13] MEDS ORDERED: Dextrose 50% 50 ML Syringe IV SCH (05:00)
--- NOTE | 2024-11-13 05:27 | NUR ---
UPDATE PT NOTED TO HAVE GLUCOSE OF 60 ON MORNING LABS. PT GIVEN 15G OF SUGAR PER PROTOCOL. AT 15 MINUTE RECHECK CBG OF 49. PT LETHARGIC AND REFUSING TO DRINK JUICE AND ENSURE DRINK. MD JOLLEY NOTIFIED. ORDER FOR 1/2 AN AMP OF D50 AND RECHECK CBG BEFORE GIVING FULL AMP. AT 15 MINUTE RECHECK CBG 74. OTHER HALF OF AMP HELD AT THIS TIME. PT TOOK A FEW SIPS OF AN ENSURE DRINK BUT REFUSED TO DRINK/EAT ANYTHING ELSE. PT EDUCATED. CONTINUED TO REFUSE. WILL RECHECK CBG PER PROTOCOL. BED IN LOWEST POSITION. BED ALARM ON. CALL LIGHT WITHIN REACH.
--- NOTE | 2024-11-13 07:42 | NUR ---
ASSUMPTION NOTE: THIS RN TO ASSUME CARE OF PATIENT. PATIENT IN BED,DOES OPEN EYES TO SOUNDS,NOT WAKING UP COMPLETELY BUT DID DENY ANY PAIN OR CHEST PAIN/PRESSURE.
--- NOTE | 2024-11-13 08:30 | NUR ---
MD ROUNDED: MD ROUNDED AND SPOKE WITH PATIENT. AWARE THAT NEW MEDICATIONS WERE ADDED,THIS RN TO CALL MD WHEN SIGNIFICANT OTHER COMES TO SPEAK ABOUT GOALS OF CARE. PROVIDER AWARE THAT PATIENT HAS HAD POOR INTAKE AND ENCOURAGED TO TAKE ENSURES.
[2024-11-13] MEDS ORDERED: Phytonadione 5 MG Tab PO ONE (09:00)
--- NOTE | 2024-11-13 09:00 | NUR ---
PALLIATIVE: PALLIATIVE CARE CAME BY TO CHAT WITH PATIENT. PATIENT WOULD LIKE TO TALK TO FAMILY PRIOR TO CHANGING ANYTHING WE ARE DOING REGARDING HER CARE. HER SIGNIFICANT OTHER TO COME BY LATER TODAY.
[2024-11-13] MEDS ORDERED: D5W-1/2NS 1,000 ML IV SCH (13:45)
--- NOTE | 2024-11-13 13:52 | NUR ---
CALLED: THIS RN CALLED REGARIDNG SPOT CHECKNG PATIENTS BLOOD SUGAR DUE TO HER NOT EATING MUCH THROUGHT THE SHIFT. CBG WAS 56, GAVE VERBAL ORDERES TO GIVE D5 1/2NS AT 75HR.
--- NOTE | 2024-11-13 14:31 | NUR ---
UPDATE: PATIENT BLOOD SUGAR UPON CHECK AFTER STARTING THE DEXTORSE 1/2 SALINE CONTINUES TO BE THE SAME,UNCHANGED. PATIENT NEURO STATUS REMAINS THE SAME AND DECLINING ANY FOOD,APPLE JUICE OR ICE CREAM. ARIES HAS CALL LIGHT WITHIN REACH,BED IN LOWEST POSITION & STATING SHE WOULD LIKE TO SLEEP.
--- NOTE | 2024-11-13 15:14 | NUR ---
CBG UPDATE: THIS RN CHECKED PATIENTS CBG AND IT DID COME UP SLIGHTLY. PATIENT NEURO STATUS REMAINS THE SAME. DECLINED WANTING ANYTHING BY MOUTH LIKE JUICE OR ICE CREAM
--- NOTE | 2024-11-13 16:07 | NUR ---
MET WITH PATIENT AFTER PROVIDERS VISIT. PROVIDER HAD RELAYED TO PATIENT HOW POOR SHE WAS DOING. PATIENT EXPRESSED UNDERSTANDING OF CONVERSATION. SHE REPORTED THAT SHE WANTS TO TALK TO HER FAMILY, BUT SHE IS AGREEABLE TO HOSPICE AND EXPRESSED WANTING TO GO HOME.
--- NOTE | 2024-11-13 17:05 | NUR ---
MD AND PALLIATIE ROUNDED: MD AND PALLIATIVE NURSE ROUNDED AND WRE ABLE TO TALK TO FAMILY AND PATIENT. THEY DECIDED TO CHANGE CODE STATUS TO DNR AND WILL BE TALKING TO THE REST OF THE FAMILY REGARDING PATIENT GOING HOME ON HOSPICE. ORDERS WERE PLACED FOR STATUS CHANGE.
--- NOTE | 2024-11-13 17:07 | NUR ---
SHIFT SUMMARY: PATIENT IS ALERT AND ORIENTED X3-4 AT TIMES,IS FORGETFUL AND VERY DROWSY AT TIMES. PATIENT IS ON TELE SHOWING SINUS RYTHM WITH RATE 80-90'S. SATTING >92% 4 LITERS VIA HEATED HIGH FLOW. FAMILY CAME THORUGHOUT SHIFT. PT DECLINED WORKIING WITH PHYSICAL THERAPY AND DID NOT GET MUCH ORAL INTAKE IN TODAY. WAS STARTED ON DEXTROSE 1/2NS AT 75/HR FOR BLOOD SUGARS BEING LOW,SEE PREVIOUS NOTES FOR MORE INFORMATION. PATIENT CONTINUES TO HAVE BOUTS OF LOOSE STOOLS AND GETTING LACTULOSE. WAS BLADDER SCANNED AND STRAIGHT CATH'D THROUGHOUT THE SHIFT. PATIENT SLEPT MOST OF SHIFT, HAS CALL LIGHT WITHIN REACH,AND BED IN LOWEST POSITION,STATING NOTHING ELSE IS NEEDED AT THIS TIME.
[2024-11-14 02:18] VITALS: BP 73/38
[2024-11-14 02:20] VITALS: BP 91/63
[2024-11-14 02:21] VITALS: BP 95/60
--- NOTE | 2024-11-14 02:50 | NUR ---
AID IN PTS ROOM. NOTIFIED THIS RN PTS O2 SAT AT 85%. ATTEMPTED CHANGING FINGER PROBE. ATTEMPTED NOSE PROBE. TRIED A DIFFERENT FINGER, PROBE STARTED TO WORK AGIAN O2 IN THE LOW 90'S.
--- NOTE | 2024-11-14 03:07 | NUR ---
RN TO BEDSIDE. PROBE STOPPED READING AGAIN. PT WITH LABORED, SHALLOW BREATHING AT THIS TIME. PT MORE CONFUSED AT THIS TIME. PT BEGAN TO HAVE SOME MOTTLING ON LOWER EXTREMITIES. RESIDIENT CALLED AND ASKED TO COME TO BEDSIDE. RESIDENT AT BEDSIDE EXAMINING PT. ATTEMPTED TO GET BLOOD PRESSURE BUT UNABLE TO GET READING. MANUAL BLOOD PRESSURE DONE AND SYSTOLIC PRESURE IN THE 80'S, HR IN THE 120'S. PT STOPPED RESPONDING, PT CLENCHING JAW, NO GAG REFLEX PRESENT. RESIDENT CALLED AND ASKED TO COME BACK TO ROOM AT THIS TIME. RESIDENT AT BEDSIDE.PATIENT STOPPED BREATHING PTS HR DROPPED TO THE 30'S THEN ASYSTOLE. RESIDENT CALLED TIME OF AT 0249. FAMILY NOTIFIED BY TRAIN CONTROL ELECTRONIC TECHNICIAN.
== END 2024-11-14 05:45 | DRG 205 ==
LOC: ER 20:46 → MEDS 20:47 → PCU 10-31 14:51 → ICUE 10-31 14:51 → MEDS 10-31 14:51 → PCU 11-02 08:20 → ICUE 11-03 07:38 → PCU 11-09 12:32
PROVIDERS: Family Medicine; Hospitalist; Internal Medicine; Internal Medicine Critical Care Medicine; Nurse Practitioner Acute Care; Student in an Organized Health Care Education/Training Program; ADMIT Internal Medicine
PROC: 3E03329 Introduction of Other Anti-infective into Peripheral Vein, Percutaneous Approach (ICD-10-PCS; 2024-10-31)
PROC: 0T9B70Z Drainage of Bladder with Drainage Device, Via Natural or Artificial Opening (ICD-10-PCS; 2024-10-31)
PROC: 5A09457 Assistance with Respiratory Ventilation, 24-96 Consecutive Hours, Continuous Positive Airway Pressure (ICD-10-PCS; 2024-11-01)
PROC: 5A0935A Assistance with Respiratory Ventilation, Less than 24 Consecutive Hours, High Flow/Velocity Cannula (ICD-10-PCS; principal; 2024-11-02)
PROC: 30233N1 Transfusion of Nonautologous Red Blood Cells into Peripheral Vein, Percutaneous Approach (ICD-10-PCS; 2024-11-03)
PROC: 3E033XZ Introduction of Vasopressor into Peripheral Vein, Percutaneous Approach (ICD-10-PCS; 2024-11-03)
PROC: 6A550Z2 Pheresis of Platelets, Single (ICD-10-PCS; 2024-11-03)
PROC: 02HV33Z Insertion of Infusion Device into Superior Vena Cava, Percutaneous Approach (ICD-10-PCS; 2024-11-13)
DX: J98.4 Other disorders of lung (principal); G92.8 Other toxic encephalopathy; J96.01 Acute respiratory failure with hypoxia; I50.31 Acute diastolic (congestive) heart failure; E87.1 Hypo-osmolality and hyponatremia; R44.3 Hallucinations, unspecified; Z66 Do not resuscitate; F05 Delirium due to known physiological condition; F10.239 Alcohol dependence with withdrawal, unspecified; E72.20 Disorder of urea cycle metabolism, unspecified; J44.1 Chronic obstructive pulmonary disease with (acute) exacerbation; C85.84 Other specified types of non-Hodgkin lymphoma, lymph nodes of axilla and upper limb; B18.2 Chronic viral hepatitis C; D69.6 Thrombocytopenia, unspecified; E86.0 Dehydration; I95.9 Hypotension, unspecified; M19.90 Unspecified osteoarthritis, unspecified site; G25.81 Restless legs syndrome; Z68.29 Body mass index [BMI] 29.0-29.9, adult; E66.9 Obesity, unspecified; R14.0 Abdominal distension (gaseous); E80.6 Other disorders of bilirubin metabolism; R45.1 Restlessness and agitation; K12.1 Other forms of stomatitis; R13.10 Dysphagia, unspecified; K70.10 Alcoholic hepatitis without ascites; T45.1X5A Adverse effect of antineoplastic and immunosuppressive drugs, initial encounter; R40.0 Somnolence; E16.2 Hypoglycemia, unspecified; R19.7 Diarrhea, unspecified; C43.9 Malignant melanoma of skin, unspecified; K76.82 Hepatic encephalopathy; H11.32 Conjunctival hemorrhage, left eye; Z91.013 Allergy to seafood; Z88.8 Allergy status to other drugs, medicaments and biological substances; Z98.891 History of uterine scar from previous surgery; Z90.721 Acquired absence of ovaries, unilateral; Z90.710 Acquired absence of both cervix and uterus; Z90.49 Acquired absence of other specified parts of digestive tract; Z90.79 Acquired absence of other genital organ(s); Z87.19 Personal history of other diseases of the digestive system; Z98.890 Other specified postprocedural states; Z87.891 Personal history of nicotine dependence; Z85.43 Personal history of malignant neoplasm of ovary; Z82.61 Family history of arthritis; Z82.49 Family history of ischemic heart disease and other diseases of the circulatory system; Z80.41 Family history of malignant neoplasm of ovary; Z79.899 Other long term (current) drug therapy; Z79.51 Long term (current) use of inhaled steroids; Z79.2 Long term (current) use of antibiotics; Z79.52 Long term (current) use of systemic steroids
CPT/HCPCS: 0202U; 36415; 36430; 36569; 51702; 70450; 71045; 71046; 71260; 74177; 80048; 80053; 81001; 82140; 82330; 82803; 82947; 83690; 83735; 83880; 84100; 84145; 84484; 85025; 85027; 85379; 85384; 85610; 86900; 86901; 87040; 92526; 92610; 93005; 93010; 93306; 93971; 94640; 94660; 94664; 94760; 94762; 96360; 96360-59; 96361; 96365; 96367; 97110; 97161; 97165; 97530; 97535; 99285-25; A6590; A9270; C1751; G0378; J0456; J0696; J1938; J2060; J2405; J2543; J2919; J3360; J3411; J7030; J7040; J7042; J7050; J7060; J7120; J7799; P9035; Q9967